=== PATIENT | female | born 1950 | race Caucasian/White ===

== ENCOUNTER 2017-02-03 11:59 | Emergency (ER) | payer MEDICARE, OTHER ==
[~2017-02-03] VITALS: Ht 162.6 cm; Wt 65.0 kg
[~2017-02-03 11:59] MED LIST: ALBUTEROL SUL0.083 % IN; ALIGN4 MG PO; AMLODIPINE5 MG PO; AZITHROMYCIN500 MG PO; CEPHALEXIN500 M1 PO; CHERATUSSIN OR; CIPRO XR500 M2 PO; CIPROFLOXACN500 MG PO; DEXILANT30 MG PO; DICLOFENAC SODI75 MG PO; DUONEB IN; FLONASE NASAL50 MCG; GABAPENTIN300 MG PO; LIPITOR20 M1 PO; LORTAB 10 OR; LORTAB 5 OR; LOSARTAN POT50 MG PO; LOSARTAN/HCT1 TA2 PO; MECLIZINE25 MG PO; MEDDOSEPAK PO; METHOCARBAMOL500 MG PO; MICARDIS40 MG OR; MYCOLOG CREAM15 GM EX; OXYCODONE HCL5 MG PO; PREDNISONE50 MG PO; PREVACID30 M1 OR; PRILOSEC40 MG PO; PROAIR HFA IN; SINGULAIR 10 MG10 MG PO; SPIRIVA IN; SYMBICORT 80-4.5MCG IN; SYMBICORT1 AE1 IN; TORADOL PO; TRAMADOL HCL50 MG PO; VENTOLIN HFA IN; XANAX0.25 MG PO; ZITHROMAX250 MG PO; ZYRTEC10 M1 PO; [UNRECOGNIZED DRUG - CODE] PO
[2017-02-03] MEDS ORDERED: TRAMADOL HYDROC50 MG PO (15:01)
[2017-02-03 15:20] VITALS: BP 128/79
== END 2017-02-03 15:20 | disposition home or self-care (01) ==
LOC: ED 11:59
DX: S10.93XA Contusion of unspecified part of neck, initial encounter (principal); W18.09XA Striking against other object with subsequent fall, initial encounter; Y93.89 Activity, other specified; Y92.008 Other place in unspecified non-institutional (private) residence as the place of occurrence of the external cause

== ENCOUNTER 2017-07-04 10:46 | Emergency (ER) | payer MEDICARE, OTHER ==
[~2017-07-04] VITALS: Ht 162.6 cm; Wt 63.0 kg
[~2017-07-04 10:46] MED LIST changes: +TRAMADOL HYDROC50 MG PO
[2017-07-04 11:29] LABS: HEMATOCRIT 34.7 % (37.0-47.0); HEMOGLOBIN 11.8 g/dl (12.0-16.0); IMMATURE GRANULOCYTES 0.6 % (0.0-1.0); MEAN CELL VOLUME 93.5 fL CALC (80.0-100.0); MEAN CORPUSCULAR HGB 31.8 pG CALC (26.0-32.0); NEUT# 4.34 thou/uL (2.00-7.15); RED BLOOD COUNT 3.71 mill/uL (4.20-5.60); RED CELL DISTRI WIDTH 12.8 % (11.5-15.5)
[2017-07-04 12:08] LABS: ALBUMIN 4.6 g/dL (3.2-5.0); ALKALINE PHOSPHATASE 73 u/l (38-126); ANION GAP 21 (6-22 (CALC)); BILIRUBIN, TOTAL 0.4 mg/dL (0.0-1.4); BUN 12 mg/dL (8-23); BUN/CREATININE RATIO 17 (12-20 (CALC)); CARBON DIOXIDE 24 mmol/l (22-30); CHLORIDE 100 mmol/l (95-108); CREATININE 0.7 mg/dL (0.5-1.0); GFR > 60 ML/MIN (>=60 (CALC)); GFR FOR AFR.AMER. > 60 ML/MIN (>=60 (CALC)); POTASSIUM 3.4 mmol/l (3.5-5.1); SGOT/AST 22 u/l (9-36); SGPT/ALT 30 u/l (11-66); SODIUM 142 mmol/l (137-146)
[2017-07-04] MEDS ORDERED: ANTIVERT PO (12:27)
[2017-07-04 12:30] VITALS: BP 139/76
== END 2017-07-04 12:35 | disposition home or self-care (01) ==
LOC: ED 10:46
PROVIDERS: Emergency Medicine
DX: R42 Dizziness and giddiness (principal); I10 Essential (primary) hypertension; K21.9 Gastro-esophageal reflux disease without esophagitis

== ENCOUNTER 2018-10-22 18:10 | Emergency (ER) | payer MEDICARE, OTHER ==
[~2018-10-22] VITALS: Ht 162.6 cm; Wt 70.0 kg
[~2018-10-22 18:10] MED LIST changes: +ANTIVERT PO
[2018-10-22 19:03] LABS: IMMATURE GRANULOCYTES 0.3 % (0.0-5.0); MEAN CELL VOLUME 90.6 fL CALC (80.0-100.0); MEAN CORPUSCULAR HGB 29.6 pG CALC (26.0-32.0); MEAN CORPUSCULAR HGB CONC 32.7 g/L CALC (32.0-36.0); NEUT# 3.05 thou/uL (2.00-7.15); RED BLOOD COUNT 3.31 mill/uL (4.20-5.60)
[2018-10-22 19:15] LABS: HEMOGLOBIN 9.8 g/dl (12.0-16.0)
[2018-10-22 19:30] LABS: ALBUMIN 3.9 g/dL (3.2-5.0); ALKALINE PHOSPHATASE 74 u/l (38-126); ANION GAP 13 (6-22 (CALC)); BILIRUBIN, TOTAL 0.3 mg/dL (0.0-1.4); BUN 17 mg/dL (8-23); BUN/CREATININE RATIO 22 (12-20 (CALC)); CARBON DIOXIDE 25 mmol/l (22-30); CHLORIDE 106 mmol/l (95-108); CREATININE 0.8 mg/dL (0.5-1.0); GFR > 60 ML/MIN (>=60 (CALC)); GFR FOR AFR.AMER. > 60 ML/MIN (>=60 (CALC)); LIPASE 119 u/l (23-300); POTASSIUM 3.6 mmol/l (3.5-5.1); SGOT/AST 22 u/l (9-36); SODIUM 141 mmol/l (137-146); TOTAL PROTEIN 6.7 g/dL (6.3-8.2)
[2018-10-22 19:58] LABS: URINE BILIRUBIN - DIPSTICK NEGATIVE (NEGATIVE); URINE BLOOD DIPSTICK NEGATIVE (NEGATIVE); URINE COLOR YELLOW; URINE GLUCOSE - DIPSTICK NEGATIVE (NEGATIVE); URINE KETONE NEGATIVE (NEGATIVE); URINE LEUK ESTERASE NEGATIVE (Negative); URINE NITRITE - DIPSTICK NEGATIVE (Negative); URINE PROTEIN - DIPSTICK NEGATIVE (NEG-TRACE); URINE SPECIFIC GRAVITY 1.015; URINE UROBILINOGEN - DIPSTICK 0.2 E.U./dL (0.2)
[2018-10-22 19:59] LABS: URINE CLARITY CLEAR
[2018-10-22] MEDS ORDERED: SERTRALINE HCL50 MG PO (20:08)
[2018-10-22] MEDS ORDERED: ALPRAZOLAM0.25 MG PO (20:08)
[2018-10-22] MEDS ORDERED: NAPROXEN DR500 MG PO (20:18)
[2018-10-22] MEDS ORDERED: ORPHENADRINE100 MG PO (20:18)
[2018-10-22] MEDS ORDERED: PREDNISONE20 MG PO (20:18)
[2018-10-22 20:35] VITALS: BP 127/69
== END 2018-10-22 20:35 | disposition home or self-care (01) ==
LOC: ED 18:10
DX: M62.830 Muscle spasm of back (principal); I10 Essential (primary) hypertension

== ENCOUNTER 2020-07-05 | Emergency (ER) | payer MEDICARE, OTHER ==
[~2020-07-05] MED LIST changes: +ALPRAZOLAM0.25 MG PO; +EFFEXOR XR75 MG/CAP PO; +NAPROXEN DR500 MG PO; +ORPHENADRINE100 MG PO; +PREDNISONE20 MG PO; +SERTRALINE HCL50 MG PO; +VENLAFAXINE HC150 MG PO
[2020-07-05 10:53] LABS: IMMATURE GRANULOCYTES 0.3 % (0.0-5.0); MEAN CELL VOLUME 91.2 fL CALC (80.0-100.0); MEAN CORPUSCULAR HGB 29.5 pG CALC (26.0-32.0); MEAN CORPUSCULAR HGB CONC 32.4 g/dL CAL (32.0-36.0); NEUT# 3.79 thou/uL (2.00-7.15); RED BLOOD COUNT 3.73 mill/uL (4.20-5.60); RED CELL DISTRI WIDTH 13.1 % (11.5-15.5)
[2020-07-05 11:01] LABS: ALBUMIN 4.8 g/dL (3.2-5.0); ALKALINE PHOSPHATASE 80 u/l (38-126); ANION GAP 15 (6-22 (CALC)); BILIRUBIN, TOTAL 0.8 mg/dL (0.0-1.4); BUN 20 mg/dL (8-23); BUN/CREATININE RATIO 23 (12-20 (CALC)); CARBON DIOXIDE 26 mmol/l (22-30); CHLORIDE 100 mmol/l (95-108); CREATININE 0.9 mg/dL (0.5-1.0); GFR > 60 ML/MIN (>=60 (CALC)); GFR FOR AFR.AMER. > 60 ML/MIN (>=60 (CALC)); POTASSIUM 3.7 mmol/l (3.5-5.1); SGOT/AST 31 u/l (9-36); SODIUM 137 mmol/l (137-146); TOTAL PROTEIN 8.3 g/dL (6.3-8.2)
[2020-07-05 11:09] LABS: MYOGLOBIN 46 ng/mL (0 - 62)
[2020-07-05] MEDS ORDERED: INDOCIN25 MG PO (12:50)
== END 2020-07-05 13:01 | disposition home or self-care (01) ==
PROVIDERS: Emergency Medicine
DX: R09.1 Pleurisy (principal); I10 Essential (primary) hypertension; J44.9 Chronic obstructive pulmonary disease, unspecified; F32.9 Major depressive disorder, single episode, unspecified; K21.9 Gastro-esophageal reflux disease without esophagitis
CPT/HCPCS: Q9967

== ENCOUNTER 2020-07-30 23:39 | Emergency (ER) | payer MEDICARE, OTHER ==
[~2020-07-30 23:39] MED LIST changes: +INDOCIN25 MG PO
[2020-07-31 02:30] VITALS: BP 149/72
[2020-07-31 02:34] LABS: HEMATOCRIT 31.3 % (37.0-47.0); HEMOGLOBIN 10.4 g/dl (12.0-16.0); IMMATURE GRANULOCYTES 0.6 % (0.0-5.0); MEAN CELL VOLUME 90.2 fL CALC (80.0-100.0); MEAN CORPUSCULAR HGB CONC 33.2 g/dL CAL (32.0-36.0); NEUT# 2.93 thou/uL (2.00-7.15); RED BLOOD COUNT 3.47 mill/uL (4.20-5.60); RED CELL DISTRI WIDTH 12.7 % (11.5-15.5)
[2020-07-31 02:55] LABS: ALBUMIN 4.2 g/dL (3.2-5.0); ALKALINE PHOSPHATASE 61 u/l (38-126); BILIRUBIN, TOTAL 0.6 mg/dL (0.0-1.4); BUN 15 mg/dL (8-23); BUN/CREATININE RATIO 21 (12-20 (CALC)); CARBON DIOXIDE 22 mmol/l (22-30); CHLORIDE 95 mmol/l (95-108); CREATININE 0.7 mg/dL (0.5-1.0); GFR > 60 ML/MIN (>=60 (CALC)); GFR FOR AFR.AMER. > 60 ML/MIN (>=60 (CALC)); POTASSIUM 3.7 mmol/l (3.5-5.1); SGOT/AST 31 u/l (9-36)
[2020-07-31 02:56] LABS: ANION GAP 14 (6-22 (CALC)); SODIUM 127 mmol/l (137-146)
== END 2020-07-31 02:49 | disposition short-term general hospital (02) ==
LOC: ED 23:39
PROVIDERS: Emergency Medicine
PROC: 2W38X1Z Immobilization of Right Upper Extremity using Splint (ICD-10-PCS; principal; 2020-07-31)
DX: S42.491B Other displaced fracture of lower end of right humerus, initial encounter for open fracture (principal); I10 Essential (primary) hypertension; J44.9 Chronic obstructive pulmonary disease, unspecified; K21.9 Gastro-esophageal reflux disease without esophagitis; F32.9 Major depressive disorder, single episode, unspecified; W01.0XXA Fall on same level from slipping, tripping and stumbling without subsequent striking against object, initial encounter; Y92.003 Bedroom of unspecified non-institutional (private) residence as the place of occurrence of the external cause; Z96.611 Presence of right artificial shoulder joint

== ENCOUNTER 2020-09-13 16:08 | Emergency (ER) | payer OTHER, MEDICARE ==
[~2020-09-13] VITALS: Ht 162.6 cm; Wt 62.7 kg
[2020-09-13 17:06] LABS: GFR > 60 ML/MIN (>=60 (CALC)); GFR FOR AFR.AMER. > 60 ML/MIN (>=60 (CALC))
[2020-09-13 17:12] LABS: HEMATOCRIT 34.9 % (37.0-47.0); IMMATURE GRANULOCYTES 0.7 % (0.0-5.0); MEAN CELL VOLUME 94.3 fL CALC (80.0-100.0); MEAN CORPUSCULAR HGB 29.7 pG CALC (26.0-32.0); MEAN CORPUSCULAR HGB CONC 31.5 g/dL CAL (32.0-36.0); NEUT# 5.13 thou/uL (2.00-7.15); RED BLOOD COUNT 3.7 mill/uL (4.20-5.60); RED CELL DISTRI WIDTH 12.7 % (11.5-15.5)
[2020-09-13 17:25] LABS: ALBUMIN 4.4 g/dL (3.2-5.0); ALKALINE PHOSPHATASE 86 u/l (38-126); AMYLASE 92 u/l (30-110); BUN 27 mg/dL (8-23); BUN/CREATININE RATIO 28 (12-20 (CALC)); CARBON DIOXIDE 22 mmol/l (22-30); CHLORIDE 100 mmol/l (95-108); GFR 55 ML/MIN (>=60 (CALC)); GFR FOR AFR.AMER. > 60 ML/MIN (>=60 (CALC)); LIPASE 240 u/l (23-300); POTASSIUM 3.9 mmol/l (3.5-5.1); SGOT/AST 35 u/l (9-36); TOTAL PROTEIN 7.8 g/dL (6.3-8.2)
[2020-09-13 17:26] LABS: ACT PARTIAL THROMBO TIME 21.8 SECONDS (20.0-32.5); PROTHROMBIN TIME 10.3 SECONDS (9.0-12.5)
[2020-09-13 17:37] LABS: ANION GAP 16 (6-22 (CALC)); BILIRUBIN, TOTAL 0.2 mg/dL (0.0-1.4); SODIUM 134 mmol/l (137-146)
[2020-09-13 18:08] LABS: URINE BILIRUBIN - DIPSTICK NEGATIVE (NEGATIVE); URINE BLOOD DIPSTICK NEGATIVE (NEGATIVE); URINE COLOR YELLOW; URINE GLUCOSE - DIPSTICK NEGATIVE (NEGATIVE); URINE KETONE NEGATIVE (NEGATIVE); URINE LEUK ESTERASE TRACE (NEGATIVE); URINE NITRITE - DIPSTICK NEGATIVE (Negative); URINE PROTEIN - DIPSTICK NEGATIVE (NEG-TRACE); URINE SPECIFIC GRAVITY <=1.005; URINE UROBILINOGEN - DIPSTICK 0.2 E.U./dL (0.2)
[2020-09-13] MEDS ORDERED: HYDROCO/APAP1 TA9 PO (18:21)
[2020-09-13 18:25] VITALS: BP 157/83
== END 2020-09-13 18:42 | disposition home or self-care (01) | DRG 605 ==
LOC: ED 16:08
DX: S00.03XA Contusion of scalp, initial encounter (principal); S20.211A Contusion of right front wall of thorax, initial encounter; I10 Essential (primary) hypertension; J44.9 Chronic obstructive pulmonary disease, unspecified; K21.9 Gastro-esophageal reflux disease without esophagitis; F32.9 Major depressive disorder, single episode, unspecified; V53.5XXA Driver of pick-up truck or van injured in collision with car, pick-up truck or van in traffic accident, initial encounter; Z96.611 Presence of right artificial shoulder joint
CPT/HCPCS: Q9967

== ENCOUNTER 2021-09-09 19:06 | Observation (INO) | payer MEDICARE, OTHER ==
[~2021-09-09] VITALS: Ht 162.6 cm; Wt 61.0 kg
[~2021-09-09 19:06] MED LIST changes: -EFFEXOR XR75 MG/CAP PO; +HYDROCO/APAP1 TA9 PO; +VENLAFAXINE37.5 M1 PO
[2021-09-09 19:16] VITALS: BP 150/87
[2021-09-09] MEDS ORDERED: SYMBICORT 80-4.5MCG IN (19:36)
[2021-09-09] MEDS ORDERED: GABAPENTIN100 MG PO (19:36)
[2021-09-09] MEDS ORDERED: LORTAB 5/3255 MG PO (19:39)
[2021-09-09 19:47] LABS: HEMATOCRIT 34.2 % (37.0-47.0); HEMOGLOBIN 11.1 g/dl (12.0-16.0); IMMATURE GRANULOCYTES 0.5 % (0.0-5.0); MEAN CORPUSCULAR HGB 30.5 pG CALC (26.0-32.0); MEAN CORPUSCULAR HGB CONC 32.5 g/dL CAL (32.0-36.0); NEUT# 2.89 thou/uL (2.00-7.15); RED BLOOD COUNT 3.64 mill/uL (4.20-5.60); RED CELL DISTRI WIDTH 12.4 % (11.5-15.5)
[2021-09-09 20:02] LABS: ALBUMIN 4.2 g/dL (3.2-5.0); ALKALINE PHOSPHATASE 78 u/l (38-126); AMYLASE 76 u/l (30-110); ANION GAP 18 (6-22 (CALC)); BUN 22 mg/dL (8-23); BUN/CREATININE RATIO 19 (12-20 (CALC)); CARBON DIOXIDE 25 mmol/l (22-30); CHLORIDE 98 mmol/l (95-108); CREATININE 1.1 mg/dL (0.5-1.0); GFR FOR AFR.AMER. 59 ML/MIN (>=60 (CALC)); GFR OTHER RACES 49 ML/MIN (>=60 (CALC)); LIPASE 180 u/l (23-300); POTASSIUM 3.6 mmol/l (3.5-5.1); SGOT/AST 29 u/l (9-36); SODIUM 136 mmol/l (137-146); TOTAL PROTEIN 7.7 g/dL (6.3-8.2)
[2021-09-09 20:03] LABS: URINE BILIRUBIN - DIPSTICK NEGATIVE (NEGATIVE); URINE BLOOD DIPSTICK TRACE-INTACT (NEGATIVE); URINE COLOR YELLOW; URINE GLUCOSE - DIPSTICK NEGATIVE (NEGATIVE); URINE KETONE NEGATIVE (NEGATIVE); URINE LEUK ESTERASE NEGATIVE (NEGATIVE); URINE PROTEIN - DIPSTICK NEGATIVE (NEG-TRACE); URINE SPECIFIC GRAVITY 1.015; URINE UROBILINOGEN - DIPSTICK 0.2 E.U./dL (0.2)
[2021-09-09 20:04] LABS: URINE NITRITE - DIPSTICK NEGATIVE (Negative)
[2021-09-09 20:05] LABS: ACT PARTIAL THROMBO TIME 28.1 SECONDS (20.0-32.5); BILIRUBIN, TOTAL 0.3 mg/dL (0.0-1.4); INTERNATIONAL NORMALIZED RATIO 1.1 RATIO (0.7-1.3); PROTHROMBIN TIME 11.1 SECONDS (9.0-12.5)
[2021-09-09 20:42] VITALS: BP 129/71
[2021-09-09 20:45] VITALS: BP 137/73
[2021-09-09 21:00] VITALS: BP 122/56
[2021-09-09 21:41] VITALS: BP 155/76
[2021-09-10 00:04] VITALS: BP 122/68
[2021-09-10 04:28] VITALS: BP 95/51
[2021-09-10 05:35] LABS: HEMATOCRIT 29.5 % (37.0-47.0); HEMOGLOBIN 9.8 g/dl (12.0-16.0); MEAN CELL VOLUME 93.9 fL CALC (80.0-100.0); MEAN CORPUSCULAR HGB 31.2 pG CALC (26.0-32.0); MEAN CORPUSCULAR HGB CONC 33.2 g/dL CAL (32.0-36.0); RED BLOOD COUNT 3.14 mill/uL (4.20-5.60); RED CELL DISTRI WIDTH 12.3 % (11.5-15.5)
[2021-09-10 05:52] LABS: ANION GAP 10 (6-22 (CALC)); BUN 17 mg/dL (8-23); BUN/CREATININE RATIO 18 (12-20 (CALC)); CALCULATED LDLCHOLESTEROL 46 mg/dL (62-129 (CALC)); CARBON DIOXIDE 29 mmol/l (22-30); CHLORIDE 101 mmol/l (95-108); CHOLESTEROL HDL RATIO 2.3 (<4.4 (CALC)); CREATININE 0.9 mg/dL (0.5-1.0); GFR FOR AFR.AMER. > 60 ML/MIN (>=60 (CALC)); GFR OTHER RACES > 60 ML/MIN (>=60 (CALC)); HDL CHOLESTEROL 55 mg/dL (>=40); POTASSIUM 3.4 mmol/l (3.5-5.1); SODIUM 137 mmol/l (137-146); TOTAL CHOLESTEROL 127 mg/dl (0-199); TOTAL TRIGLYCERIDES 128 mg/dl (30-149); VLDL CHOLESTROL 26 mg/dl (0-48 (CALC))
[2021-09-10 06:09] LABS: MAGNESIUM 0.6 mg/dL (1.6-2.3)
[2021-09-10 07:00] VITALS: BP 100/49
[2021-09-10] MEDS ORDERED: MAXITROL0.1 % OD (07:08)
[2021-09-10] MEDS ORDERED: LOSARTAN POTASS25 MG PO (07:08)
[2021-09-10] MEDS ORDERED: OMEPRA/BICAR1 CAP PO (07:09)
[2021-09-10] MEDS ORDERED: ATORVASTATIN CA40 MG PO (07:10)
[2021-09-10] MEDS ORDERED: HYDROCODONE BIT1 TA9 PO (07:11)
[2021-09-10] MEDS ORDERED: XANAX0.25 MG PO (07:11)
[2021-09-10 10:41] VITALS: BP 116/65
[2021-09-10 15:01] VITALS: BP 122/66
== END 2021-09-10 15:58 | disposition home or self-care (01) ==
LOC: ED 19:06 → ED-I 20:22 → ED 20:33 → MS2 20:34
PROVIDERS: ADMIT Hospitalist; ATTEND Hospitalist
DX: R07.89 Other chest pain (principal); E83.42 Hypomagnesemia; E87.6 Hypokalemia; I10 Essential (primary) hypertension; J44.9 Chronic obstructive pulmonary disease, unspecified; K21.9 Gastro-esophageal reflux disease without esophagitis; G25.81 Restless legs syndrome; F32.A Depression, unspecified; K58.2 Mixed irritable bowel syndrome; E78.5 Hyperlipidemia, unspecified; Z63.4 Disappearance and death of family member; Z63.8 Other specified problems related to primary support group; Z87.440 Personal history of urinary (tract) infections; Z82.49 Family history of ischemic heart disease and other diseases of the circulatory system; Z87.891 Personal history of nicotine dependence; Z20.822 Contact with and (suspected) exposure to COVID-19
CPT/HCPCS: G0378; J1650; J3475

== ENCOUNTER 2021-11-13 09:08 | Observation (INO) | payer MEDICARE, OTHER ==
[2021-11-13] VITALS (31 sets, daily range): BP systolic 125–170; BP diastolic 69–109
[~2021-11-13] VITALS: Ht 162.6 cm; Wt 57.0 kg
[~2021-11-13 09:08] MED LIST changes: +ATORVASTATIN CA40 MG PO; +GABAPENTIN100 MG PO; +HYDROCODONE BIT1 TA9 PO; +LORTAB 5/3255 MG PO; +LOSARTAN POTASS25 MG PO; +MAXITROL0.1 % OD; +OMEPRA/BICAR1 CAP PO
[2021-11-13 10:13] LABS: HEMATOCRIT 33.9 % (37.0-47.0); HEMOGLOBIN 11.1 g/dl (12.0-16.0); IMMATURE GRANULOCYTES 0.2 % (0.0-5.0); MEAN CELL VOLUME 93.9 fL CALC (80.0-100.0); MEAN CORPUSCULAR HGB 30.7 pG CALC (26.0-32.0); MEAN CORPUSCULAR HGB CONC 32.7 g/dL CAL (32.0-36.0); NEUT# 3.34 thou/uL (2.00-7.15); RED BLOOD COUNT 3.61 mill/uL (4.20-5.60); RED CELL DISTRI WIDTH 13.2 % (11.5-15.5)
[2021-11-13 10:23] LABS: ALBUMIN 4.4 g/dL (3.2-5.0); ALKALINE PHOSPHATASE 69 u/l (38-126); ANION GAP 13 (6-22 (CALC)); BILIRUBIN, TOTAL 0.6 mg/dL (0.0-1.4); BUN 11 mg/dL (8-23); BUN/CREATININE RATIO 14 (12-20 (CALC)); CARBON DIOXIDE 28 mmol/l (22-30); CHLORIDE 102 mmol/l (95-108); CREATININE 0.8 mg/dL (0.5-1.0); GFR FOR AFR.AMER. > 60 ML/MIN (>=60 (CALC)); GFR OTHER RACES > 60 ML/MIN (>=60 (CALC)); POTASSIUM 3.6 mmol/l (3.5-5.1); SGOT/AST 42 u/l (9-36); SODIUM 139 mmol/l (137-146); TOTAL PROTEIN 7.6 g/dL (6.3-8.2)
[2021-11-13] MEDS ORDERED: MAGNESIUM OXID500 M1 PO (13:27)
[2021-11-13] MEDS ORDERED: LOSARTAN POTASS50 MG PO (21:51)
[2021-11-14] VITALS: BP 119/64
[2021-11-14 00:06] VITALS: BP 119/64
[2021-11-14 04:00] VITALS: BP 107/55
[2021-11-14 04:10] VITALS: BP 107/55
[2021-11-14 05:26] LABS: CHOLESTEROL HDL RATIO 3.1 (<4.4 (CALC))
[2021-11-14 05:27] LABS: MAGNESIUM 1.7 mg/dL (1.6-2.3)
[2021-11-14 06:27] VITALS: BP 111/60
[2021-11-14 10:09] VITALS: BP 136/75
[2021-11-14 11:33] LABS: HEMATOCRIT 31.3 % (37.0-47.0); HEMOGLOBIN 10.4 g/dl (12.0-16.0); MEAN CELL VOLUME 92.1 fL CALC (80.0-100.0); MEAN CORPUSCULAR HGB 30.6 pG CALC (26.0-32.0); MEAN CORPUSCULAR HGB CONC 33.2 g/dL CAL (32.0-36.0); NEUT# 2.66 thou/uL (2.00-7.15); RED BLOOD COUNT 3.4 mill/uL (4.20-5.60); RED CELL DISTRI WIDTH 13.2 % (11.5-15.5)
== END 2021-11-14 14:10 | disposition home or self-care (01) ==
LOC: ED 09:08 → ED-I 15:04 → ED 15:38 → MS2 15:38
PROVIDERS: Family Medicine; Internal Medicine; ADMIT Internal Medicine; ATTEND Internal Medicine
DX: R07.2 Precordial pain (principal); E83.42 Hypomagnesemia; I10 Essential (primary) hypertension; J44.9 Chronic obstructive pulmonary disease, unspecified; K58.2 Mixed irritable bowel syndrome; K21.9 Gastro-esophageal reflux disease without esophagitis; E78.5 Hyperlipidemia, unspecified; G25.81 Restless legs syndrome; Z87.440 Personal history of urinary (tract) infections; Z63.6 Dependent relative needing care at home; Z87.891 Personal history of nicotine dependence; Z20.822 Contact with and (suspected) exposure to COVID-19
CPT/HCPCS: G0378; J3475; Q9967

== ENCOUNTER 2022-01-12 07:08 | Day surgery (SDC) | payer MEDICARE, OTHER ==
[~2022-01-12] VITALS: Ht 162.6 cm; Wt 54.4 kg
[~2022-01-12 07:08] MED LIST changes: +EFFEXOR XR75 MG/CAP PO; +LOSARTAN POTASS50 MG PO; +MAGNESIUM OXID500 M1 PO
[2022-01-12 11:26] VITALS: BP 135/76
== END 2022-01-12 10:05 | disposition home or self-care (01) ==
LOC: ENDO 07:08 → ORM 08:45 → ENDO 08:45
PROVIDERS: ATTEND Surgery
PROC: 0DJD8ZZ Inspection of Lower Intestinal Tract, Via Natural or Artificial Opening Endoscopic (ICD-10-PCS; principal; 2022-01-12)
PROC: 0DB68ZX Excision of Stomach, Via Natural or Artificial Opening Endoscopic, Diagnostic (ICD-10-PCS; 2022-01-12)
DX: K31.9 Disease of stomach and duodenum, unspecified (principal); K44.9 Diaphragmatic hernia without obstruction or gangrene; K57.30 Diverticulosis of large intestine without perforation or abscess without bleeding; K64.8 Other hemorrhoids; K64.4 Residual hemorrhoidal skin tags; I10 Essential (primary) hypertension; J44.9 Chronic obstructive pulmonary disease, unspecified; F32.9 Major depressive disorder, single episode, unspecified; Z86.010 Personal history of colon polyps

== ENCOUNTER 2022-03-05 10:51 | Observation (INO) | payer MEDICARE, OTHER ==
[~2022-03-05] VITALS: Ht 162.6 cm; Wt 57.6 kg
[2022-03-05] VITALS (13 sets, daily range): BP systolic 75–140; BP diastolic 44–76
--- NOTE | 2022-03-05 10:51 | NUR ---
PT AMBULATED TO ROOM FOR TRIAGE
[2022-03-05 11:26] LABS: HEMATOCRIT 32.2 % (37.0-47.0); HEMOGLOBIN 10.8 g/dl (12.0-16.0); IMMATURE GRANULOCYTES 0.2 % (0.0-5.0); MEAN CELL VOLUME 93.3 fL CALC (80.0-100.0); MEAN CORPUSCULAR HGB 31.3 pG CALC (26.0-32.0); MEAN CORPUSCULAR HGB CONC 33.5 g/dL CAL (32.0-36.0); NEUT# 5.34 thou/uL (2.00-7.15); RED BLOOD COUNT 3.45 mill/uL (4.20-5.60); RED CELL DISTRI WIDTH 12.6 % (11.5-15.5)
[2022-03-05 11:53] LABS: ALBUMIN 4.5 g/dL (3.2-5.0); ALKALINE PHOSPHATASE 67 u/l (38-126); ANION GAP 14 (6-22 (CALC)); BILIRUBIN, TOTAL 0.5 mg/dL (0.0-1.4); BUN 23 mg/dL (8-23); BUN/CREATININE RATIO 17 (12-20 (CALC)); CARBON DIOXIDE 25 mmol/l (22-30); CHLORIDE 99 mmol/l (95-108); CREATININE 1.4 mg/dL (0.5-1.0); GFR FOR AFR.AMER. 45 ML/MIN (>=60 (CALC)); GFR OTHER RACES 37 ML/MIN (>=60 (CALC)); POTASSIUM 4.1 mmol/l (3.5-5.1); SGOT/AST 36 u/l (9-36); SODIUM 135 mmol/l (137-146); TOTAL PROTEIN 7.6 g/dL (6.3-8.2)
--- NOTE | 2022-03-05 12:15 | NUR ---
PT IN ROOM C/O RT SIDE PAIN THAT IS RADIATING UP TO HER BACK
--- NOTE | 2022-03-05 13:15 | NUR ---
Reassessment of patient completed. No distress noted.
[2022-03-05 13:42] LABS: URINE BILIRUBIN - DIPSTICK NEGATIVE (NEGATIVE); URINE BLOOD DIPSTICK NEGATIVE (NEGATIVE); URINE COLOR YELLOW; URINE GLUCOSE - DIPSTICK NEGATIVE (NEGATIVE); URINE KETONE NEGATIVE (NEGATIVE); URINE LEUK ESTERASE TRACE (NEGATIVE); URINE PROTEIN - DIPSTICK NEGATIVE (NEG-TRACE); URINE SPECIFIC GRAVITY <=1.005; URINE UROBILINOGEN - DIPSTICK 0.2 E.U./dL (0.2)
[2022-03-05 13:48] LABS: URINE NITRITE - DIPSTICK POSITIVE (Negative)
[2022-03-05 13:49] LABS: URINE BACTERIA MODERATE hpf; URINE EPITHELIAL CELLS FEW EPI/hpf (0-FEW)
--- NOTE | 2022-03-05 14:15 | NUR ---
PT IN ROOM RESTING WITH EYES OPEN. PT ASKED TO USED THE REST ROOM. A BEDSIDE COMMODE WAS PLACED IN PT ROOM.
--- NOTE | 2022-03-05 15:20 | NUR ---
PT IN ROOM RESTING WITH EYES CLOSED
--- NOTE | 2022-03-05 16:19 | NUR ---
PT ARRIVED TO [facility] VIA STRETCHER ACCOMPAINED BY ER STAFF. PT AMBULATORY WITH X1 ASSIST FROM STRETCHER TO BED. PT STATES SHE FEELS VERY WEAK AND HAS HAD RECENT UNINTENTIONAL WEIGHT LOSS OF 35LBS. PT A&OX3. NO APPARENT RESPIRATORY DISTRESS NOTED. INSPECTOR INTEGRATED CIRCUITS IN PLACE. IV SITE APPEARS HEALTHY. PT ABLE TO MAKE NEEDS KNOWN. ORIENTED TO ROOM AND CALL LIGHT SYSTEM. COMPRESSION STOCKINGS AND NONSKID SOCKS APPLIED. DISCUSSED POC AND SAFETY PRECAUTIONS. CALL LIGHT WITHIN REACH. WILL CONTINUE TO MONITOR.
--- NOTE | 2022-03-05 16:25 | NUR ---
PT IS BEING ADMITTED AND IS BEING TRANSFERRED TO [facility] 268. NAD
--- NOTE | 2022-03-05 17:15 | NUR ---
REPORT GIVEN TO CAROL VIA PHONE
--- NOTE | 2022-03-05 23:40 | NUR ---
1900 BEDSIDE REPORT RECEIVED FROM CHLOÉ MEDINA. PT RESTING IN BED WITH EYES CLOSED. NO SIGNS OF DISTRESS NOTED. PT C/O RIGHT UNDERARM PAIN BUT DOES NOT HAVE ANY MEDICATIONS ORDERED AT THIS TIME, SPOKE TO DR. ELIAS AND HOME MEDS RECONCILED. SAFETY PRECAUTIONS IN PLACE.
[2022-03-06 00:14] VITALS: BP 106/55
[2022-03-06 03:43] VITALS: BP 103/44
[2022-03-06 06:06] LABS: HEMATOCRIT 26.9 % (37.0-47.0); HEMOGLOBIN 9.2 g/dl (12.0-16.0); MEAN CELL VOLUME 94.1 fL CALC (80.0-100.0); MEAN CORPUSCULAR HGB 32.2 pG CALC (26.0-32.0); MEAN CORPUSCULAR HGB CONC 34.2 g/dL CAL (32.0-36.0); RED BLOOD COUNT 2.86 mill/uL (4.20-5.60); RED CELL DISTRI WIDTH 12.7 % (11.5-15.5)
[2022-03-06 06:28] LABS: ANION GAP 9 (6-22 (CALC)); BUN 19 mg/dL (8-23); BUN/CREATININE RATIO 23 (12-20 (CALC)); CARBON DIOXIDE 25 mmol/l (22-30); CHLORIDE 105 mmol/l (95-108); CREATININE 0.8 mg/dL (0.5-1.0); GFR FOR AFR.AMER. > 60 ML/MIN (>=60 (CALC)); GFR OTHER RACES > 60 ML/MIN (>=60 (CALC)); MAGNESIUM 1.4 mg/dL (1.6-2.3); POTASSIUM 4.1 mmol/l (3.5-5.1); SODIUM 135 mmol/l (137-146)
[2022-03-06 06:38] VITALS: BP 140/73
--- NOTE | 2022-03-06 08:26 | NUR ---
PT RESTING IN BED, NO SIGNS OF DISTRESS NOTED, RESP EVEN AND UNLABORED. PT ALERT AND ORIENTED X4, DISCUSSED POC, PT SAT UP TO SIDE OF BED, C/O PAIN TO R RIBS. PT MEDICATED PER MAR. ASSESSMENT COMPLETED, CALL LIGHT IN REACH,CONTINUE TO MONITOR.
--- NOTE | 2022-03-06 09:46 | NUR ---
PT SITTING IN BED, S/O AT BEDSIDE. DISCUSSED IV MAGNESIUM. PT VERABALIZED UNDERSTANDING. PT MEDICATED PER JUN. CALL LIGHT IN REACH,CONTINUE TO MONITOR.
[2022-03-06 11:19] VITALS: BP 115/61
--- NOTE | 2022-03-06 11:30 | NUR ---
CHAY OLIVER, DISCUSSED INFUSION, VERBALIZED UNDERSTANDING.
--- NOTE | 2022-03-06 13:24 | NUR ---
Discharge instructions given. Patient verbalizes understanding of same. Discharged in stable condition via Wheelchair to Home with spouse. All belongings sent with pt.
== END 2022-03-06 13:25 | disposition home or self-care (01) ==
LOC: ED 10:51 → ED-I 14:44 → ED 15:07 → MS2 15:08
PROVIDERS: Family Medicine; ADMIT Internal Medicine; ATTEND Internal Medicine
DX: N39.0 Urinary tract infection, site not specified (principal); R91.8 Other nonspecific abnormal finding of lung field; G89.29 Other chronic pain; M54.9 Dorsalgia, unspecified; I10 Essential (primary) hypertension; J44.9 Chronic obstructive pulmonary disease, unspecified; F41.9 Anxiety disorder, unspecified; I95.9 Hypotension, unspecified; K58.2 Mixed irritable bowel syndrome; K21.9 Gastro-esophageal reflux disease without esophagitis; B96.89 Other specified bacterial agents as the cause of diseases classified elsewhere; Z87.891 Personal history of nicotine dependence; Z87.440 Personal history of urinary (tract) infections; Z79.891 Long term (current) use of opiate analgesic
CPT/HCPCS: J3475; Q9967

== ENCOUNTER 2022-07-22 10:44 | Observation (INO) | payer MEDICARE, OTHER ==
[2022-07-22] VITALS (14 sets, daily range): BP systolic 111–146; BP diastolic 65–82
[~2022-07-22] VITALS: Ht 162.6 cm; Wt 54.2 kg
[~2022-07-22 10:44] MED LIST changes: -GABAPENTIN100 MG PO; +NEURONTIN300 MG PO
[2022-07-22 11:19] LABS: BASO% 0.4 % (0-3); EOS% 7.3 % (0-8); HEMATOCRIT 32.6 % (37.0-47.0); HEMOGLOBIN 10.8 g/dl (12.0-16.0); IMMATURE GRANULOCYTES 0.1 % (0.0-5.0); LYMPH% 23.7 % (15-41); MEAN CELL VOLUME 92.6 fL CALC (80.0-100.0); MEAN CORPUSCULAR HGB 30.7 pG CALC (26.0-32.0); MEAN CORPUSCULAR HGB CONC 33.1 g/dL CAL (32.0-36.0); MONO% 4.9 % (2-13); NEUT# 4.51 thou/uL (2.00-7.15); NEUT% 63.6 % (42-76); RED BLOOD COUNT 3.52 mill/uL (4.20-5.60); RED CELL DISTRI WIDTH 12.7 % (11.5-15.5)
[2022-07-22 11:27] LABS: ALBUMIN 4.7 g/dL (3.2-5.0); ALKALINE PHOSPHATASE 82 u/l (38-126); ANION GAP 15 (6-22 (CALC)); BILIRUBIN, TOTAL 0.5 mg/dL (0.02-1.3); BUN 15 mg/dL (8-23); BUN/CREATININE RATIO 17 (12-20 (CALC)); CARBON DIOXIDE 25 mmol/l (22-30); CHLORIDE 100 mmol/l (95-108); CREATININE 0.9 mg/dL (0.5-1.0); GFR FOR AFR.AMER. > 60 ML/MIN (>=60 (CALC)); GFR OTHER RACES > 60 ML/MIN (>=60 (CALC)); POTASSIUM 3.5 mmol/l (3.5-5.1); SGOT/AST 28 u/l (9-36); SODIUM 136 mmol/l (137-146); TOTAL PROTEIN 7.9 g/dL (6.3-8.2)
[2022-07-22 11:30] LABS: MAGNESIUM 0.9 mg/dL (1.6-2.3)
[2022-07-22] MEDS ORDERED: HYZAAR1 TA2 PO (13:51)
[2022-07-22 14:13] LABS: URINE BILIRUBIN - DIPSTICK NEGATIVE (NEGATIVE); URINE BLOOD DIPSTICK NEGATIVE (NEGATIVE); URINE COLOR YELLOW; URINE GLUCOSE - DIPSTICK NEGATIVE (NEGATIVE); URINE KETONE NEGATIVE (NEGATIVE); URINE LEUK ESTERASE TRACE (NEGATIVE); URINE PROTEIN - DIPSTICK NEGATIVE (NEG-TRACE); URINE UROBILINOGEN - DIPSTICK 0.2 E.U./dL (0.2)
[2022-07-22 14:24] LABS: URINE NITRITE - DIPSTICK NEGATIVE (Negative)
[2022-07-23] VITALS (7 sets, daily range): BP systolic 105–166; BP diastolic 54–83
[2022-07-23 05:29] LABS: BASO% 0.2 % (0-3); EOS% 0.7 % (0-8); HEMATOCRIT 32.2 % (37.0-47.0); HEMOGLOBIN 10.7 g/dl (12.0-16.0); LYMPH% 6.7 % (15-41); MEAN CELL VOLUME 93.1 fL CALC (80.0-100.0); MEAN CORPUSCULAR HGB 30.9 pG CALC (26.0-32.0); MEAN CORPUSCULAR HGB CONC 33.2 g/dL CAL (32.0-36.0); MONO% 0.9 % (2-13); NEUT# 5.05 thou/uL (2.00-7.15); RED BLOOD COUNT 3.46 mill/uL (4.20-5.60); RED CELL DISTRI WIDTH 12.6 % (11.5-15.5)
[2022-07-23 05:52] LABS: ALBUMIN 4.1 g/dL (3.2-5.0); ALKALINE PHOSPHATASE 77 u/l (38-126); ANION GAP 12 (6-22 (CALC)); BILIRUBIN, TOTAL 0.4 mg/dL (0.02-1.3); BUN 11 mg/dL (8-23); BUN/CREATININE RATIO 16 (12-20 (CALC)); CARBON DIOXIDE 25 mmol/l (22-30); CHLORIDE 104 mmol/l (95-108); CREATININE 0.7 mg/dL (0.5-1.0); GFR FOR AFR.AMER. > 60 ML/MIN (>=60 (CALC)); GFR OTHER RACES > 60 ML/MIN (>=60 (CALC)); MAGNESIUM 1.9 mg/dL (1.6-2.3); POTASSIUM 3.7 mmol/l (3.5-5.1); SGOT/AST 22 u/l (9-36); SODIUM 137 mmol/l (137-146); TOTAL PROTEIN 6.7 g/dL (6.3-8.2)
[2022-07-23 06:04] LABS: NEUT% 91.5 % (42-76)
[2022-07-24 06:12] VITALS: BP 169/81
[2022-07-24 10:10] LABS: ALBUMIN 4.4 g/dL (3.2-5.0); ALKALINE PHOSPHATASE 63 u/l (38-126); ANION GAP 13 (6-22 (CALC)); BILIRUBIN, TOTAL 0.2 mg/dL (0.02-1.3); BUN 18 mg/dL (8-23); BUN/CREATININE RATIO 27 (12-20 (CALC)); CARBON DIOXIDE 23 mmol/l (22-30); CHLORIDE 102 mmol/l (95-108); CREATININE 0.7 mg/dL (0.5-1.0); GFR FOR AFR.AMER. > 60 ML/MIN (>=60 (CALC)); GFR OTHER RACES > 60 ML/MIN (>=60 (CALC)); SGOT/AST 28 u/l (9-36); SODIUM 134 mmol/l (137-146); TOTAL PROTEIN 7.3 g/dL (6.3-8.2)
[2022-07-24 10:11] LABS: HEMATOCRIT 34.6 % (37.0-47.0); HEMOGLOBIN 11.3 g/dl (12.0-16.0); IMMATURE GRANULOCYTES 0.2 % (0.0-5.0); LYMPH% 6.7 % (15-41); MEAN CORPUSCULAR HGB 30.4 pG CALC (26.0-32.0); MEAN CORPUSCULAR HGB CONC 32.7 g/dL CAL (32.0-36.0); MONO% 1.1 % (2-13); NEUT# 11.24 thou/uL (2.00-7.15); RED BLOOD COUNT 3.72 mill/uL (4.20-5.60); RED CELL DISTRI WIDTH 12.8 % (11.5-15.5)
[2022-07-24 10:17] LABS: MAGNESIUM 1.6 mg/dL (1.6-2.3)
[2022-07-24] MEDS ORDERED: ZITHROMAX250 MG PO (10:40)
[2022-07-24 10:42] VITALS: BP 134/73
[2022-07-24] MEDS ORDERED: PREDNISONE10 MG PO (10:42)
[2022-07-24] MEDS ORDERED: MAGNESIUM OXID400 M3 PO (10:43)
[2022-07-24] MEDS ORDERED: BIOTUSSIN PO (10:43)
== END 2022-07-24 13:19 | disposition home or self-care (01) ==
LOC: ED 10:44 → ED-I 12:18 → ED 12:48 → MS2 12:49
PROVIDERS: Family Medicine; Nurse Practitioner Family; ADMIT Internal Medicine; ATTEND Internal Medicine
DX: E83.42 Hypomagnesemia (principal); J10.1 Influenza due to other identified influenza virus with other respiratory manifestations; J44.1 Chronic obstructive pulmonary disease with (acute) exacerbation; I10 Essential (primary) hypertension; R42 Dizziness and giddiness; F41.9 Anxiety disorder, unspecified; K58.2 Mixed irritable bowel syndrome; K21.9 Gastro-esophageal reflux disease without esophagitis; E78.5 Hyperlipidemia, unspecified; S00.93XA Contusion of unspecified part of head, initial encounter; S00.81XA Abrasion of other part of head, initial encounter; R91.8 Other nonspecific abnormal finding of lung field; W19.XXXA Unspecified fall, initial encounter; Z87.440 Personal history of urinary (tract) infections; Z87.891 Personal history of nicotine dependence; Z20.822 Contact with and (suspected) exposure to COVID-19
CPT/HCPCS: J3475

== ENCOUNTER 2022-08-20 12:55 | Observation (INO) | payer MEDICARE, OTHER ==
[~2022-08-20] VITALS: Ht 162.6 cm; Wt 54.4 kg
[~2022-08-20 12:55] MED LIST changes: +BIOTUSSIN PO; +HYZAAR1 TA2 PO; +MAGNESIUM OXID400 M3 PO; +PREDNISONE10 MG PO
--- NOTE | 2022-08-20 12:55 | NUR ---
PT IN ROOM 8 VIA WHEELCHAIR C/O WEAKNESS AND NAUSEA
[2022-08-20 13:25] LABS: BASO% 0.2 % (0-3); EOS% 1.8 % (0-8); HEMATOCRIT 35.6 % (37.0-47.0); HEMOGLOBIN 11.7 g/dl (12.0-16.0); IMMATURE GRANULOCYTES 0.4 % (0.0-5.0); LYMPH% 33.6 % (15-41); MEAN CELL VOLUME 94.2 fL CALC (80.0-100.0); MEAN CORPUSCULAR HGB CONC 32.9 g/dL CAL (32.0-36.0); MONO% 6.9 % (2-13); NEUT# 3.16 thou/uL (2.00-7.15); NEUT% 57.1 % (42-76); RED BLOOD COUNT 3.78 mill/uL (4.20-5.60)
[2022-08-20 13:38] LABS: ALBUMIN 4.6 g/dL (3.2-5.0); ALKALINE PHOSPHATASE 60 u/l (38-126); ANION GAP 14 (6-22 (CALC)); BUN 23 mg/dL (8-23); BUN/CREATININE RATIO 18 (12-20 (CALC)); CARBON DIOXIDE 23 mmol/l (22-30); CHLORIDE 99 mmol/l (95-108); CREATININE 1.3 mg/dL (0.5-1.0); GFR FOR AFR.AMER. 49 ML/MIN (>=60 (CALC)); GFR OTHER RACES 40 ML/MIN (>=60 (CALC)); POTASSIUM 3.2 mmol/l (3.5-5.1); SGOT/AST 30 u/l (9-36); SODIUM 134 mmol/l (137-146); TOTAL PROTEIN 7.5 g/dL (6.3-8.2)
[2022-08-20 13:40] LABS: BILIRUBIN, TOTAL 0.3 mg/dL (0.02-1.3)
--- NOTE | 2022-08-20 13:50 | NUR ---
Reassessment of patient completed. No distress noted.
--- NOTE | 2022-08-20 14:40 | NUR ---
PT'S MED REC DONE PER INFO AND LIST PT PROVIDED
[2022-08-20] MEDS ORDERED: HYDROCO/APAP1 TA9 PO (14:43)
--- NOTE | 2022-08-20 14:43 | NUR ---
Reassessment of patient completed. No distress noted. UP TO BR TO PROVIDER URINE SAMPLE.
[2022-08-20 15:05] LABS: URINE BILIRUBIN - DIPSTICK NEGATIVE (NEGATIVE); URINE BLOOD DIPSTICK NEGATIVE (NEGATIVE); URINE COLOR YELLOW; URINE GLUCOSE - DIPSTICK NEGATIVE (NEGATIVE); URINE KETONE NEGATIVE (NEGATIVE); URINE LEUK ESTERASE TRACE (NEGATIVE); URINE PH 5.5 (4.5-8.0); URINE PROTEIN - DIPSTICK TRACE mg/dL (NEG-TRACE); URINE UROBILINOGEN - DIPSTICK 0.2 E.U./dL (0.2)
[2022-08-20 15:12] LABS: URINE NITRITE - DIPSTICK NEGATIVE (Negative)
--- NOTE | 2022-08-20 15:34 | NUR ---
Reassessment of patient completed. No distress noted.
--- NOTE | 2022-08-20 16:30 | NUR ---
Reassessment of patient completed. No distress noted IS REQUESTING PAIN MED FOR ABD PAIN RADIATING INTO BACK 09/11, PROVIDER NOTIFIED.
--- NOTE | 2022-08-20 16:30 | NUR ---
Reassessment of patient completed. No distress noted. WENT TO X-RAY VIA W/C.
--- NOTE | 2022-08-20 16:43 | NUR ---
FIRTS NOT DELETED FOR 1630 DELETED IN ERROR, SECOND NOTE DELETED CORRECTLY DUE TO DOCUMENTED IN WRONG CHART.
--- NOTE | 2022-08-20 17:45 | NUR ---
Reassessment of patient completed. No distress noted.
--- NOTE | 2022-08-20 18:50 | NUR ---
Reassessment of patient completed. No distress noted.
--- NOTE | 2022-08-20 20:15 | NUR ---
REPORT CALLED TO MS CHLOÉ MAKESHA - PT TX VIA WHEELCHAIR AND IS A/OX4, VSS, NAD.
--- NOTE | 2022-08-20 20:27 | NUR ---
REPORT RECEIBVED FROM EDITH IN THE ER. PATIENT ARRIVED TO ROOM 261 VIA AT 2025. PATIENT ABLE TO AMBULATE AND WAS ABLE TO GO TO THE BATHROOM INDEPENDENTLY. HEAD TO TOE ASSESSMENT COMPLETED. SKIN INTACT. PATIENT ALERT AND ORIENTED AND ABLE TO MAKE NEEDS KNOWN. ORIENTED TO ROOM AND CALL LIGHT. SAFETY MEASURES IN PLACE. CALL LIGHT WITHIN EACH.
[2022-08-20 20:32] VITALS: BP 122/67
[2022-08-21] VITALS (7 sets, daily range): BP systolic 106–126; BP diastolic 62–75
--- NOTE | 2022-08-21 05:23 | NUR ---
PATIENT RESTING IN BED. DENIES PAIN OR DISCOMFORT AT THIS TIME. CALL LIGHT WITHIN REACH.
[2022-08-21 05:44] LABS: BASO% 0.5 % (0-3); EOS% 2.9 % (0-8); LYMPH% 44.4 % (15-41); MEAN CELL VOLUME 94.9 fL CALC (80.0-100.0); MEAN CORPUSCULAR HGB 31.1 pG CALC (26.0-32.0); MEAN CORPUSCULAR HGB CONC 32.8 g/dL CAL (32.0-36.0); MONO% 7.8 % (2-13); NEUT# 1.82 thou/uL (2.00-7.15); NEUT% 44.4 % (42-76); RED BLOOD COUNT 3.12 mill/uL (4.20-5.60); RED CELL DISTRI WIDTH 12.9 % (11.5-15.5)
[2022-08-21 05:47] LABS: HEMATOCRIT 29.6 % (37.0-47.0); HEMOGLOBIN 9.7 g/dl (12.0-16.0)
[2022-08-21 05:57] LABS: ALKALINE PHOSPHATASE 57 u/l (38-126); BUN 15 mg/dL (8-23); BUN/CREATININE RATIO 20 (12-20 (CALC)); CARBON DIOXIDE 22 mmol/l (22-30); CHLORIDE 105 mmol/l (95-108); CREATININE 0.8 mg/dL (0.5-1.0); GFR FOR AFR.AMER. > 60 ML/MIN (>=60 (CALC)); GFR OTHER RACES > 60 ML/MIN (>=60 (CALC)); SGOT/AST 22 u/l (9-36); SODIUM 134 mmol/l (137-146)
[2022-08-21 05:58] LABS: ALBUMIN 3.6 g/dL (3.2-5.0); ANION GAP 11 (6-22 (CALC)); BILIRUBIN, TOTAL 0.1 mg/dL (0.02-1.3)
--- NOTE | 2022-08-21 07:28 | NUR ---
PT RESTING IN BED. ALL SAFETY MEASURES IN PLACE. VSS. NO NEEDS AT THIS TIME.
--- NOTE | 2022-08-21 12:00 | NUR ---
PT RESTING COMFORTABLY. VSS. NO NEEDS AT THIS TIME. FAMILY AT BEDSIDE.
--- NOTE | 2022-08-21 17:00 | NUR ---
PT RESTING COMFORTABLY. VSS. NO NEEDS AT THIS TIME. FAMILY AT BEDSIDE.
--- NOTE | 2022-08-21 20:50 | NUR ---
PT IN BED AWAKE. DENIES PAIN OR DISCOMFORT. ASSESMENT COMPLETED. BREATING EVEN AND UNLABORED. NO S/S OF DISTRESS NOTED. PT REQUEST A SLEEPING PILL, DR FOREMAN NOTIFIED AND ORDER RESTORIL MAR UPDATED AND MEDICATED ASS ORDER. CALL LIGHT IN REACH AND BED IN LOWEST POSITION.
--- NOTE | 2022-08-22 00:50 | NUR ---
PT IN BED RESTING WITH EYES CLOSED. BREATHING IS EVEN UNLABORED. NO S/S OF DISTRESS NOTED. CALL LIGHT IN REACH AND BED IN LOWEST POSITION.
[2022-08-22 04:20] VITALS: BP 109/55
[2022-08-22 04:25] VITALS: BP 118/41
--- NOTE | 2022-08-22 04:55 | NUR ---
PT IN BED RESTING WITH EYES CLOSED, BREATHING IS EVEN AND UNLABORED. NO S/S OF DISTRESS NOTED CALL LIGHT IN REACH AND BED IN LOWEST POSITION.
[2022-08-22 05:11] VITALS: BP 118/41
[2022-08-22 07:28] VITALS: BP 126/74
--- NOTE | 2022-08-22 07:33 | NUR ---
PT RESTING IN BED. ALL SAFETY MEASURES IN PLACE. NO NEEDS AT THIS TIME. VSS
[2022-08-22 09:36] LABS: BASO% 0.2 % (0-3); EOS% 1.6 % (0-8); HEMATOCRIT 33.8 % (37.0-47.0); IMMATURE GRANULOCYTES 0.2 % (0.0-5.0); LYMPH% 33.4 % (15-41); MEAN CELL VOLUME 94.7 fL CALC (80.0-100.0); MEAN CORPUSCULAR HGB 30.8 pG CALC (26.0-32.0); MEAN CORPUSCULAR HGB CONC 32.5 g/dL CAL (32.0-36.0); MONO% 7.3 % (2-13); NEUT# 2.57 thou/uL (2.00-7.15); NEUT% 57.3 % (42-76); RED BLOOD COUNT 3.57 mill/uL (4.20-5.60); RED CELL DISTRI WIDTH 12.9 % (11.5-15.5)
[2022-08-22 15:32] VITALS: BP 108/61
[2022-08-22 19:28] VITALS: BP 101/62
--- NOTE | 2022-08-22 20:30 | NUR ---
PT IN BED WATCHING TV. SHIFT ASSESSMENT COMPLETED. NO S/S OF DISTRESS NOTED. BREATHING EVEN UNLABORED. PT STATES THAT SHE PULL HER IV THIS AM IN HER SLEEP. IV CATH NOTED ON THE IV TUBING, CATH IS INTACT. NO OTHER NEEDS OR CONCERNS VOICED. CALL LIGHT IN REACH AND BED IN LOWEST POSITION.
--- NOTE | 2022-08-22 23:39 | NUR ---
PT IN BED WATCHING TV. SHIFT ASSESMENT COMPLETED. NO S/S OF DISTRESS NOTED. BREATHING IS EVEN AND UNLABORED. PT STATES THAT SHE PULL HER IF THIS AM WHEN SHE HALF SLEEP. IV CATH NOTED AT THE END OF IV TUBING, CATH IS INTACT. NO OTHER NEEDS OR CONCERNS VOICED AT THIS TIME. CALL LIGHT IN REACH AND BED IN LOWEST POSITION.
--- NOTE | 2022-08-23 00:31 | NUR ---
PT IN BED PLAYING ON HER PHONE. DENIES PAIN OR DISCOMFORT. NO S/S OF DISTRESS NOTED. CALL LIGHT IN REACH AND BED IN LOWESST POSITIN.
[2022-08-23 03:53] VITALS: BP 112/69
--- NOTE | 2022-08-23 04:20 | NUR ---
PT IN BED RESTING WITH EYES CLOSED BREATHING EVEN AND UNLABORED. NO S/S OF DISTRESSNOTED. CALL LIGHT IN REACH AND BED IN LOWEST POSITION.
[2022-08-23 05:50] LABS: BASO% 0.5 % (0-3); EOS% 2.3 % (0-8); HEMATOCRIT 29.7 % (37.0-47.0); HEMOGLOBIN 9.6 g/dl (12.0-16.0); IMMATURE GRANULOCYTES 0.5 % (0.0-5.0); LYMPH% 40.5 % (15-41); MEAN CELL VOLUME 95.5 fL CALC (80.0-100.0); MEAN CORPUSCULAR HGB 30.9 pG CALC (26.0-32.0); MEAN CORPUSCULAR HGB CONC 32.3 g/dL CAL (32.0-36.0); MONO% 7.4 % (2-13); NEUT# 2.1 thou/uL (2.00-7.15); NEUT% 48.8 % (42-76); RED BLOOD COUNT 3.11 mill/uL (4.20-5.60); RED CELL DISTRI WIDTH 12.9 % (11.5-15.5)
[2022-08-23 06:09] LABS: ALBUMIN 3.6 g/dL (3.2-5.0); ALKALINE PHOSPHATASE 48 u/l (38-126); ANION GAP 11 (6-22 (CALC)); BUN 15 mg/dL (8-23); BUN/CREATININE RATIO 22 (12-20 (CALC)); CARBON DIOXIDE 24 mmol/l (22-30); CHLORIDE 104 mmol/l (95-108); CREATININE 0.7 mg/dL (0.5-1.0); GFR FOR AFR.AMER. > 60 ML/MIN (>=60 (CALC)); GFR OTHER RACES > 60 ML/MIN (>=60 (CALC)); POTASSIUM 3.6 mmol/l (3.5-5.1); SGOT/AST 20 u/l (9-36); SODIUM 135 mmol/l (137-146); TOTAL PROTEIN 6.2 g/dL (6.3-8.2)
[2022-08-23 07:23] VITALS: BP 114/62
--- NOTE | 2022-08-23 08:00 | NUR ---
PT IN BED RESTING. ALERT AND ORIENTED X 3, PT HAS NO C/O PAIN AT THIS TIME. PT AMBULATING WELL TO BATHROOM FOR TOILETING NEEDS. PT HAS NO IV SITE AT THIS TIME, PROVIDER AWARE. PT HAS CALL LIGHT WTIHIN REACH AND SAFETY MEASURES IN PLACE AT THIS ITME.
[2022-08-23 10:05] VITALS: BP 129/73
[2022-08-23] MEDS ORDERED: LOSARTAN POTASS50 MG PO (10:38)
--- NOTE | 2022-08-23 12:07 | NUR ---
Discharge instructions given. Patient verbalizes understanding of same. Discharged in stable condition via Wheelchair to Home with staff. All belongings sent with pt.
== END 2022-08-23 12:20 | disposition home or self-care (01) ==
LOC: ED 12:55 → ED-I 14:25 → ED 18:02 → MS2 18:03
PROVIDERS: Family Medicine; ADMIT Internal Medicine; ATTEND Internal Medicine
DX: N17.9 Acute kidney failure, unspecified (principal); E86.0 Dehydration; E87.1 Hypo-osmolality and hyponatremia; E87.6 Hypokalemia; R91.8 Other nonspecific abnormal finding of lung field; I10 Essential (primary) hypertension; J44.9 Chronic obstructive pulmonary disease, unspecified; K58.2 Mixed irritable bowel syndrome; D64.9 Anemia, unspecified; F41.9 Anxiety disorder, unspecified; Z87.440 Personal history of urinary (tract) infections; Z73.3 Stress, not elsewhere classified; Z63.8 Other specified problems related to primary support group; Z87.891 Personal history of nicotine dependence; Z20.822 Contact with and (suspected) exposure to COVID-19
CPT/HCPCS: Q9967

== ENCOUNTER 2022-10-17 11:59 | Observation (INO) | payer MEDICARE, OTHER ==
[~2022-10-17] VITALS: Ht 162.6 cm; Wt 52.8 kg
[2022-10-17] VITALS (15 sets, daily range): BP systolic 88–182; BP diastolic 54–105
[~2022-10-17 11:59] MED LIST changes: +GABAPENTIN100 MG PO; +MECLIZINE 2525 MG PO; +NORVASC PO; +OMEPRAZOLE20 MG PO; +SYMBICORT 80-4.5MCG; +VENLAFAXINE HCL75 M1 PO
[2022-10-17] MEDS ORDERED: AMLODIPINE BESYL5 MG PO (12:14)
[2022-10-17] MEDS ORDERED: HYDROCHLOROT25 MG PO (12:16)
[2022-10-17 13:14] LABS: BASO% 0.3 % (0-3); HEMATOCRIT 35.8 % (37.0-47.0); HEMOGLOBIN 11.7 g/dl (12.0-16.0); IMMATURE GRANULOCYTES 0.2 % (0.0-5.0); LYMPH% 30.9 % (15-41); MEAN CELL VOLUME 91.1 fL CALC (80.0-100.0); MEAN CORPUSCULAR HGB 29.8 pG CALC (26.0-32.0); MEAN CORPUSCULAR HGB CONC 32.7 g/dL CAL (32.0-36.0); MONO% 7.3 % (2-13); NEUT# 3.3 thou/uL (2.00-7.15); NEUT% 50.3 % (42-76); RED BLOOD COUNT 3.93 mill/uL (4.20-5.60); RED CELL DISTRI WIDTH 12.7 % (11.5-15.5)
[2022-10-17 13:23] LABS: ALBUMIN 4.7 g/dL (3.2-5.0); ALKALINE PHOSPHATASE 90 u/l (38-126); BUN 10 mg/dL (8-23); BUN/CREATININE RATIO 13 (12-20 (CALC)); CARBON DIOXIDE 25 mmol/l (22-30); CHLORIDE 97 mmol/l (95-108); CREATININE 0.7 mg/dL (0.5-1.0); GFR FOR AFR.AMER. > 60 ML/MIN (>=60 (CALC)); GFR OTHER RACES > 60 ML/MIN (>=60 (CALC)); SGOT/AST 28 u/l (9-36); SODIUM 135 mmol/l (137-146); TOTAL PROTEIN 7.7 g/dL (6.3-8.2)
[2022-10-17 13:24] LABS: ANION GAP 16 (6-22 (CALC)); BILIRUBIN, TOTAL 0.6 mg/dL (0.02-1.3); POTASSIUM 3.1 mmol/l (3.5-5.1)
[2022-10-18 01:54] VITALS: BP 113/58
[2022-10-18 04:00] VITALS: BP 101/54
[2022-10-18 04:49] LABS: EOS% 0.2 % (0-8); HEMATOCRIT 33.9 % (37.0-47.0); IMMATURE GRANULOCYTES 0.2 % (0.0-5.0); MEAN CELL VOLUME 91.1 fL CALC (80.0-100.0); MEAN CORPUSCULAR HGB 29.6 pG CALC (26.0-32.0); MEAN CORPUSCULAR HGB CONC 32.4 g/dL CAL (32.0-36.0); MONO% 0.8 % (2-13); NEUT# 4.56 thou/uL (2.00-7.15); NEUT% 86.8 % (42-76); RED BLOOD COUNT 3.72 mill/uL (4.20-5.60); RED CELL DISTRI WIDTH 12.6 % (11.5-15.5)
[2022-10-18 05:02] LABS: ALBUMIN 4.3 g/dL (3.2-5.0); ALKALINE PHOSPHATASE 85 u/l (38-126); ANION GAP 14 (6-22 (CALC)); BILIRUBIN, TOTAL 0.4 mg/dL (0.02-1.3); BUN 13 mg/dL (8-23); BUN/CREATININE RATIO 18 (12-20 (CALC)); CARBON DIOXIDE 23 mmol/l (22-30); CHLORIDE 99 mmol/l (95-108); CREATININE 0.7 mg/dL (0.5-1.0); GFR FOR AFR.AMER. > 60 ML/MIN (>=60 (CALC)); GFR OTHER RACES > 60 ML/MIN (>=60 (CALC)); MAGNESIUM 1.5 mg/dL (1.6-2.3); POTASSIUM 3.2 mmol/l (3.5-5.1); SGOT/AST 29 u/l (9-36); SODIUM 133 mmol/l (137-146); TOTAL PROTEIN 7.2 g/dL (6.3-8.2)
[2022-10-18 09:56] VITALS: BP 137/71
[2022-10-18 09:57] VITALS: BP 131/71
[2022-10-18] MEDS ORDERED: MEDDOSEPAK PO (10:39)
[2022-10-18] MEDS ORDERED: BIOTUSSIN PO (10:40)
[2022-10-18] MEDS ORDERED: ZITHROMAX250 MG PO (10:40)
== END 2022-10-18 12:30 | disposition home or self-care (01) ==
LOC: ED 11:59 → ICU 19:16 → MS2 19:16 → ICU 21:20
PROVIDERS: Family Medicine; ADMIT Internal Medicine; ATTEND Internal Medicine
DX: J44.1 Chronic obstructive pulmonary disease with (acute) exacerbation (principal); E87.6 Hypokalemia; C34.2 Malignant neoplasm of middle lobe, bronchus or lung; I10 Essential (primary) hypertension; K58.2 Mixed irritable bowel syndrome; F41.9 Anxiety disorder, unspecified; F32.A Depression, unspecified; Z87.891 Personal history of nicotine dependence
CPT/HCPCS: J1650; J3475; Q9967

== ENCOUNTER 2023-03-30 10:06 | Inpatient (IN) | payer MEDICARE, OTHER ==
[~2023-03-30] VITALS: Ht 162.6 cm; Wt 51.2 kg
[2023-03-30] VITALS (11 sets, daily range): BP systolic 123–146; BP diastolic 66–83
[~2023-03-30 10:06] MED LIST changes: +AMLODIPINE BESYL5 MG PO; +HYDROCHLOROT25 MG PO
[2023-03-30] MEDS ORDERED: OMEPRAZOLE DR40 MG PO (10:19)
[2023-03-30] MEDS ORDERED: FLUTICASONE PR50 MC1 (10:19)
[2023-03-30] MEDS ORDERED: HYDROCHLOROT25 MG PO (10:20)
[2023-03-30] MEDS ORDERED: AMLODIPINE BESY10 MG PO (10:20)
--- NOTE | 2023-03-30 10:22 | NUR ---
TO ROOM 14 VIA EMS STRETCHER IN STABLE CONDITION.
--- NOTE | 2023-03-30 11:31 | NUR ---
PROVIDER AT BEDSIDE. PROVIDER ADVISED PT OF PLAN OF CARE. PT VERBALIZED UNDERSTANDING.
[2023-03-30 12:14] LABS: BASO% 0.1 % (0-3); EOS% 0.2 % (0-8); HEMATOCRIT 28.9 % (37.0-47.0); HEMOGLOBIN 9.9 g/dl (12.0-16.0); IMMATURE GRANULOCYTES 0.8 % (0.0-5.0); LYMPH% 3.5 % (15-41); MEAN CORPUSCULAR HGB 33.9 pG CALC (26.0-32.0); MEAN CORPUSCULAR HGB CONC 34.3 g/dL CAL (32.0-36.0); MONO% 5.7 % (2-13); NEUT# 7.74 thou/uL (2.00-7.15); NEUT% 89.7 % (42-76); RED BLOOD COUNT 2.92 mill/uL (4.20-5.60); RED CELL DISTRI WIDTH 11.8 % (11.5-15.5)
[2023-03-30 12:29] LABS: ALBUMIN 3.5 g/dL (3.2-5.0); ALKALINE PHOSPHATASE 99 u/l (38-126); ANION GAP 16 (6-22 (CALC)); BILIRUBIN, TOTAL 0.4 mg/dL (0.02-1.3); BUN 21 mg/dL (8-23); BUN/CREATININE RATIO 40 (12-20 (CALC)); CARBON DIOXIDE 24 mmol/l (22-30); CHLORIDE 91 mmol/l (95-108); CREATININE 0.5 mg/dL (0.5-1.0); GFR FOR AFR.AMER. > 60 ML/MIN (>=60 (CALC)); GFR OTHER RACES > 60 ML/MIN (>=60 (CALC)); POTASSIUM 3.2 mmol/l (3.5-5.1); SGOT/AST 31 u/l (9-36); SODIUM 127 mmol/l (137-146); TOTAL PROTEIN 6.4 g/dL (6.3-8.2)
--- NOTE | 2023-03-30 12:47 | NUR ---
PT VSS. PT VERBALIZED CONCERNS OF CONTINUED WAIT TIMES. PT ADVISED OF CONTINUED WAIT TIMES. SON IS AT THE BEDSIDE.
--- NOTE | 2023-03-30 13:30 | NUR ---
PT IS ALERT. SON AT BEDSIDE. PT VERBALZIED NO NEEDS AT THIS TIME.
--- NOTE | 2023-03-30 15:48 | NUR ---
REPORTS PROVIDED TO [facility] NURSE. PT BELOINGS GATHERED PRIOR TO TRANSPORT.
--- NOTE | 2023-03-30 15:55 | NUR ---
RT AT BEDSIDE ADMINISTERING BREATHING TX.
--- NOTE | 2023-03-30 16:00 | NUR ---
PT ARRIVED TO UNIT FROM ER AT 1525, AOX3 BUT PLESENTLY FORGETFUL. PT CHEIF COMPLAINT IS CONSTIPATION. LAST BM 03/25/23, BP 142/73, HR 86, 02 AT 93% ON 2L. PT EDUCATED TO CALL FOR ASSISTANCE NEEDED. HOURLY ROUNDING IN PLACE.
--- NOTE | 2023-03-30 17:30 | NUR ---
PT STATES SHE HAD A LARGE BM BUT FLUSHED BEFORE I COULD SEE IT.
--- NOTE | 2023-03-30 20:10 | NUR ---
PT INQUIRING ABOUT HAVING SOMETHING TO HELP SLEEP. DR PONCE INFORMED AND ORDERED MEDICATIONS . PT VERBALIZEED UNDERSTANDING.
--- NOTE | 2023-03-30 20:15 | NUR ---
ASSESSMENT IS COMPLETED: IV SITE IS FREE FROM REDNESS OR EDEMA. HR IS REG,PULSES ARE STRONG X4,ABD IS SOFT WITH ACTIVE BS, BREATH SOUNDS ARE CLEAR AND DIMINISHED. CONTINUE TO OBSERVE AND MONITOR. PT IS ON O2 @ 2LITERS.
--- NOTE | 2023-03-30 21:39 | NUR ---
PT GOT UP TO USE THE BATHROOM WITH STAFF HELP, BECAME SHORT OF BREATH . CALLED RT AND INQUIRED ABOUT GIVING A BREATHING TREATMENT
--- NOTE | 2023-03-30 21:49 | NUR ---
RESPIRATORY IN GIVING A BREATHING TREATMENT. PT O2 WAS UP TO 3 LITERS THEN SAT UP TO 93%
[2023-03-30 22:03] LABS: URINE BILIRUBIN - DIPSTICK Negative (NEGATIVE); URINE BLOOD DIPSTICK Trace-intact (NEGATIVE); URINE GLUCOSE - DIPSTICK Negative (NEGATIVE); URINE KETONE Negative (NEGATIVE); URINE LEUK ESTERASE Trace (NEGATIVE); URINE NITRITE - DIPSTICK Negative (Negative); URINE PROTEIN - DIPSTICK 100 mg/dL (NEG-TRACE); URINE UROBILINOGEN - DIPSTICK 0.2 E.U./dL (0.2)
[2023-03-30 22:04] LABS: URINE COLOR Yellow; URINE RBC 0-2 RBC/hpf (0-5); URINE SQUAMOUS EPITHELIAL CELL RARE EPI/hpf (0-FEW); URINE WBC 0-2 WBC/hpf (0-5)
--- NOTE | 2023-03-31 00:12 | NUR ---
PT IS UP TO [facility] WITH ASSIST. TOLERATED WELL. IV SITE IS FREE FROM REDNESS OR EDEMA. HAS BEEN RESTING WITHOUT DIFFICULTY,
--- NOTE | 2023-03-31 01:00 | NUR ---
PT UP TO THE [facility] WITH 1 ASSIST AND REDIRECTED ABOUT BEING IN THE HOSPITAL. VERBALIZED UNDERSTANDING.
[2023-03-31 04:20] VITALS: BP 137/73
--- NOTE | 2023-03-31 04:38 | NUR ---
PT HAS BEEN RESTING OFF AND ON. GETS PERIODS OF CONFUSION BUT IS EASILY REDIRECTABLE. IV SITE REMAINS FREE FROM REDNESS OR EDEMA. PT HAS HAD AMOTHER LOOSE STOOL FROM MEDICATION GIVEN PRIOR TO SHIFT CHANGE.
[2023-03-31 05:50] LABS: EOS% 0.8 % (0-8); HEMATOCRIT 28.1 % (37.0-47.0); HEMOGLOBIN 9.5 g/dl (12.0-16.0); IMMATURE GRANULOCYTES 0.3 % (0.0-5.0); LYMPH% 5.4 % (15-41); MEAN CELL VOLUME 99.6 fL CALC (80.0-100.0); MEAN CORPUSCULAR HGB 33.7 pG CALC (26.0-32.0); MEAN CORPUSCULAR HGB CONC 33.8 g/dL CAL (32.0-36.0); MONO% 7.4 % (2-13); NEUT# 5.47 thou/uL (2.00-7.15); NEUT% 86.1 % (42-76); RED BLOOD COUNT 2.82 mill/uL (4.20-5.60); RED CELL DISTRI WIDTH 11.9 % (11.5-15.5)
[2023-03-31 06:13] LABS: ALBUMIN 2.9 g/dL (3.2-5.0); ALKALINE PHOSPHATASE 84 u/l (38-126); ANION GAP 14 (6-22 (CALC)); BILIRUBIN, TOTAL 0.4 mg/dL (0.02-1.3); BUN 9 mg/dL (8-23); BUN/CREATININE RATIO 20 (12-20 (CALC)); CALCULATED LDLCHOLESTEROL 62 mg/dL (62-129 (CALC)); CARBON DIOXIDE 20 mmol/l (22-30); CHLORIDE 100 mmol/l (95-108); CHOLESTEROL HDL RATIO 2.5 (<4.4 (CALC)); CREATININE 0.5 mg/dL (0.5-1.0); GFR FOR AFR.AMER. > 60 ML/MIN (>=60 (CALC)); GFR OTHER RACES > 60 ML/MIN (>=60 (CALC)); HDL CHOLESTEROL 49 mg/dL (39.0-59.0); MAGNESIUM 1.3 mg/dL (1.6-2.3); POTASSIUM 3.6 mmol/l (3.5-5.1); SGOT/AST 27 u/l (9-36); SODIUM 130 mmol/l (137-146); TOTAL PROTEIN 5.6 g/dL (6.3-8.2); TOTAL TRIGLYCERIDES 63 mg/dl (0-149); VLDL CHOLESTROL 13 mg/dl (0-48 (CALC))
[2023-03-31 06:14] LABS: TOTAL CHOLESTEROL 124 mg/dl (0-199)
[2023-03-31 07:13] VITALS: BP 134/69
--- NOTE | 2023-03-31 08:05 | NUR ---
PT ALERT, ABLE TO ANSWERS QUESTIONS CORRECTLY BUT STATES SHE FORGOT SHE WAS IN THE HOSPITAL TILL HER SON WHO VISITED THIS MORNING TOLD HER. SHE DID REMEMBER WE SENT HER PAIN PILLS TO THE PHARMACY AT ADMISSION. BED ALARM IN USE. BP 134/69 HR 103 O2 95% ON 2L, TEMP 98.4. LUNGS DIM AT THE BASES, DENIES PAIN AT THIS TIME.
--- NOTE | 2023-03-31 09:20 | NUR ---
DR PONCE AT BEDSIDE DISCUSSING PLAN OF CARE WITH PT AND .
--- NOTE | 2023-03-31 10:15 | NUR ---
RT AT BEDSIDE PERFORMING WALK TEST WITH PT.
--- NOTE | 2023-03-31 11:45 | NUR ---
PT IN BED SLEEPING AT THIS TIME.
--- NOTE | 2023-03-31 15:36 | NUR ---
PT ORIENTED TO SELF ONLY AT THIS TIME. STATES SHE WANTS TO "GO HOME" IS HOLDING HER BLONIGINGS IN HER ARMS TO LEAVE. REORIENTED PT TO PLACE/TIME. PT AGREES TO WAIT FOR TO VISIT.
[2023-03-31 15:38] VITALS: BP 160/76
[2023-03-31 19:17] VITALS: BP 148/78
--- NOTE | 2023-03-31 19:31 | NUR ---
PT O2 SAT DROPPED TO 79%, CHANGED THE PULSE OX TO FOREHEAD WENT UP TO 96% VENTOLIN INHALER GIVEN
--- NOTE | 2023-03-31 20:00 | NUR ---
ASSESSMENT IS COMPLETED: PT IS HAVING PERIODS OF CONFUSION, TELLING SPOUSE THAT STAFF IS IN THE FRONT YARD, SPOUSE REASSURED HER THAT SHE WAS IN THE HOSPITAL. IV SITE IS FREE FROM REDNESS OR EDEMA. HR IS REG,PULSES ARE STRONG, ABD IS SOFT WITH ACTIVE BS, BREATH SOUNDS ARECLEAR, CRACKLES AND DIMINSHED WITH O2 @ 2LITERD NC.
--- NOTE | 2023-03-31 23:28 | NUR ---
PT TOOK IV OUT AND TOLD STAFF"I DON'T KNOW WHAT GIVES YOU THE RIGHT TO RESTART ANIV" EXPLAINED ABOUT THE IV FLUIDS AND ABT. PT IS VERY SASSY TONIGHT TELLING STAFF SHE IS GOING HOME.
--- NOTE | 2023-03-31 23:29 | NUR ---
ATTEMPTED X2 TO RESTART THE IV NO SUCCESS WILL HAVE ANOTHER STAFF MEMBER TRY.
--- NOTE | 2023-04-01 | NUR ---
NEW IV SITE STARTED BY CHAD LUEVANO, #22 IN LFA, COVERED WITH COBAN.
--- NOTE | 2023-04-01 00:14 | NUR ---
STAFF SITTING OUTSIDE OF HER ROOM. PT SON CAME TO SEE PT STATING" I WOKE UP AND COULDN'T SLEEP SO I CAME TO BE WITH HER". INFORMED DOT NET ARCHITECT. CONTINUE TO OSBERVE AND MONITOR.
--- NOTE | 2023-04-01 02:00 | NUR ---
PT'S SON IN THE ROOM. CAME OUT AND STATED" MY MOM IS SHORT OF BREATH" WHILE IN THE ROOM,. THE SON INQUIRED " WHY WASN'T ANYONE COMING IN AND CHECKING ON PT" EXPLAINED THAT THE STAFF HAVE BEEN WALKING PAST AND CHECKING ON THE PT. ALSO WANTING TO KNOW WHY THE DR ISN'T HERE TO SEE THE PT. EXPLAINED THEY WILL BE HERE IN THE AM. VERBALIZED UNDERSTANDING,.
--- NOTE | 2023-04-01 03:30 | NUR ---
PT'S FAMILY LEFT AND WANTED US TO CALL IF MOTHER WOKE UP AND ASKED ABOUT HIM. PT THEN MOVED ON THE SIDE OF THE BED AND GAVE HER MEDICATION . ENCOURAGED TO KEEP THE O2 NC ON PT CONTINOUSLY TAKES IT OFF.
--- NOTE | 2023-04-01 04:18 | NUR ---
PT IS LAYING ON HER SIDE. REDIRECTABLE AT THIS TIME.
[2023-04-01 04:36] VITALS: BP 143/89
--- NOTE | 2023-04-01 07:41 | NUR ---
PT SLEEPING AT THIS TIME WITH SITTER AT BEDSIDE FOR SAFETY.
[2023-04-01 07:50] VITALS: BP 140/63
[2023-04-01 07:54] LABS: ALBUMIN 3.2 g/dL (3.2-5.0); ALKALINE PHOSPHATASE 99 u/l (38-126); ANION GAP 16 (6-22 (CALC)); BILIRUBIN, TOTAL 0.5 mg/dL (0.02-1.3); BUN 6 mg/dL (8-23); BUN/CREATININE RATIO 13 (12-20 (CALC)); CARBON DIOXIDE 15 mmol/l (22-30); CHLORIDE 101 mmol/l (95-108); CREATININE 0.5 mg/dL (0.5-1.0); GFR FOR AFR.AMER. > 60 ML/MIN (>=60 (CALC)); GFR OTHER RACES > 60 ML/MIN (>=60 (CALC)); POTASSIUM 3.3 mmol/l (3.5-5.1); SGOT/AST 36 u/l (9-36); SODIUM 129 mmol/l (137-146); TOTAL PROTEIN 6.7 g/dL (6.3-8.2)
[2023-04-01 08:00] LABS: BASO% 0.5 % (0-3); EOS% 0.3 % (0-8); HEMATOCRIT 31.6 % (37.0-47.0); HEMOGLOBIN 10.5 g/dl (12.0-16.0); IMMATURE GRANULOCYTES 0.4 % (0.0-5.0); LYMPH% 2.8 % (15-41); MEAN CELL VOLUME 101.9 fL CALC (80.0-100.0); MEAN CORPUSCULAR HGB 33.9 pG CALC (26.0-32.0); MEAN CORPUSCULAR HGB CONC 33.2 g/dL CAL (32.0-36.0); MONO% 4.5 % (2-13); NEUT# 8.78 thou/uL (2.00-7.15); NEUT% 91.5 % (42-76); RED BLOOD COUNT 3.1 mill/uL (4.20-5.60); RED CELL DISTRI WIDTH 12.2 % (11.5-15.5)
--- NOTE | 2023-04-01 09:00 | NUR ---
ANASTACIO,ANRP AT BEDSIDE DISCUSSING POC WITH PT.
--- NOTE | 2023-04-01 09:49 | NUR ---
RT AT ADMINISTERING BREATHING TX.
--- NOTE | 2023-04-01 11:02 | NUR ---
AT BEDSIDE DISCUSSING POC WITH PT.
--- NOTE | 2023-04-01 11:44 | NUR ---
LAB AT BEDSIDE
--- NOTE | 2023-04-01 12:35 | NUR ---
RT AT BEDSIDE OBTAINING ABG.
--- NOTE | 2023-04-01 13:25 | NUR ---
pt off the floor via wheelchair staff transport with oxygen for ct scan.
--- NOTE | 2023-04-01 13:47 | NUR ---
PT RETURNED TO MED/SURG ROOM 261 IN STABLE CONDITION VIA WC.
--- NOTE | 2023-04-01 13:51 | NUR ---
pt returned to room.
--- NOTE | 2023-04-01 15:15 | NUR ---
CRACKING UNIT OPERATOR WITNESSED FAMILY MEMBERS BRINGINGS A DOG TO BEDSIDE.THE DOG IS NOT A SERICE DOG. EDUCATED FAMILY ON [facility] PET POLICY AND FAMILY VERBALIZES UNDERSTANDING. PET ESCORTED OFF OF THE FLOOR WITH FAMILY.
[2023-04-01 15:16] VITALS: BP 156/87
--- NOTE | 2023-04-01 15:56 | NUR ---
RECIEVED CALLED FROM RN. STATING PATIENT SATTING IN THE 70'S. BROUGHT A VENTIMASK NOTICING PT. WAS MOUTH BREATHING EALIER. PLACED PT.ON 50% V/M AND SAT'S SLOWLY CAME TO 90%. INFORMED BRIANNE.
--- NOTE | 2023-04-01 15:59 | NUR ---
PT ALERT, ORIENTED TO SELF BUT NOT PLACE OR TIME. RT WORKING WITH PT, REPLACING NC WITH MASK, PT IS A MOUTH BREATHER. SITTER AT BEDSIDE FOR PT SAFETY.
--- NOTE | 2023-04-01 16:00 | NUR ---
PT O2 SATS NOTED TO BE LOW, RESULTING LOW 78%.ENCOURAGED PURSED LIP BREATHING BUT UNSUCCESSFUL. RT NOTIFIED AND PT SWITCHED TO A V/M AT 50% AND OXYGEN LEVELS STEFFANIE TO LOW 90'S.SITER AT BEDSIDE.FREQUENT ROUNDS MADE.
[2023-04-01 19:12] VITALS: BP 151/72
--- NOTE | 2023-04-01 20:20 | NUR ---
ASSESSMENT IS COMPLETED: PT IS LAYING IN BED CONTINUING TO TAKE OFF HER NON REBREATHER, ENCOURAGED TO KEEP ON, SITTER AT BEDSIDE. IV SITE IS FREE FROM REDNESS OR EDEMA. HR IS REG,PULSES ARE STRONG X4,ABD IS SOFT WITH ACTIVE BS. BREATH SOUNDS ARE CLEAR,CRACKLES AND DIMINSHED.
--- NOTE | 2023-04-01 22:39 | NUR ---
pt continues to fight with staff, pulling her mask off, encouraged to keep on and relaxing. pt is seeing things that are not there.
--- NOTE | 2023-04-02 | NUR ---
encouraged pt to sit in the reclyner to get comfortable. verbalized understanding.
--- NOTE | 2023-04-02 01:12 | NUR ---
PT HAS BEEN TAKING SMALL INTERVALS OF SLEEP, THEN GETS RESTLESS, EASILY REDIRECTABLE ON KEEPING NON REBREATHER IN PLACE. O2 GOES FROM 89-94%
[2023-04-02 03:52] VITALS: BP 156/93
--- NOTE | 2023-04-02 04:11 | NUR ---
pt has been resting with sitter at bedside., more comfortable in the reclyner, now back into bed, o2 is 97-99
--- NOTE | 2023-04-02 05:09 | NUR ---
pt is back in bed and resting encouraging to keep mask on, demonstrating , and then puts her hands back down.
[2023-04-02 05:18] LABS: BASO% 0.1 % (0-3); EOS% 0.1 % (0-8); HEMATOCRIT 28.9 % (37.0-47.0); HEMOGLOBIN 9.5 g/dl (12.0-16.0); IMMATURE GRANULOCYTES 0.2 % (0.0-5.0); LYMPH% 3.7 % (15-41); MEAN CELL VOLUME 103.6 fL CALC (80.0-100.0); MEAN CORPUSCULAR HGB 34.1 pG CALC (26.0-32.0); MEAN CORPUSCULAR HGB CONC 32.9 g/dL CAL (32.0-36.0); MONO% 6.7 % (2-13); NEUT# 9.5 thou/uL (2.00-7.15); NEUT% 89.2 % (42-76); RED BLOOD COUNT 2.79 mill/uL (4.20-5.60); RED CELL DISTRI WIDTH 12.4 % (11.5-15.5)
--- NOTE | 2023-04-02 07:00 | NUR ---
REPORT RECEIVED FROM SUSAN HOANG.
[2023-04-02 07:23] VITALS: BP 183/93
--- NOTE | 2023-04-02 07:25 | NUR ---
patients blood pressure is 180/83 heart rate is 99. will notify nurse.
[2023-04-02 07:43] VITALS: BP 141/53
--- NOTE | 2023-04-02 07:44 | NUR ---
retook patient vitals and it was 141/53 heart rate 96
[2023-04-02 07:45] VITALS: BP 141/53
[2023-04-02 08:07] LABS: ALBUMIN 2.8 g/dL (3.2-5.0); ALKALINE PHOSPHATASE 102 u/l (38-126); ANION GAP 14 (6-22 (CALC)); BILIRUBIN, TOTAL 0.4 mg/dL (0.02-1.3); BUN 11 mg/dL (8-23); BUN/CREATININE RATIO 22 (12-20 (CALC)); CARBON DIOXIDE 14 mmol/l (22-30); CHLORIDE 105 mmol/l (95-108); CREATININE 0.5 mg/dL (0.5-1.0); GFR FOR AFR.AMER. > 60 ML/MIN (>=60 (CALC)); GFR OTHER RACES > 60 ML/MIN (>=60 (CALC)); MAGNESIUM 1.7 mg/dL (1.6-2.3); POTASSIUM 3.6 mmol/l (3.5-5.1); SGOT/AST 31 u/l (9-36); SODIUM 129 mmol/l (137-146); TOTAL PROTEIN 5.6 g/dL (6.3-8.2)
--- NOTE | 2023-04-02 08:10 | NUR ---
PT RESTING IN SEMI FOWLERS POSITION,A&O X2 THIS MORNING;RESPIRATIONS SHALLOW ON NON-REBREATHER @ 12L, WITHOUT OXYGEN PT DE-SATS TO 70'S;FREQUENT RE-ASSURANCE NEEDED TO KEEP MASK ON;DIMINISHED LUNG SOUNDS NOTED; NOTIFIED;ABDOMEN SOFT ON PALPATION AND ACTIVE IN ALL 4 QUADRANTS;WEAK PEDAL PULSES;SKIN INTACT;#22G TO RFA INFUSING NS @ 10ML/HR,SITE APPEARS HEALTHY;PT PROVIDED SODA PER REQUEST, ENCOURAGED ORAL INTAKE;PT DENIES ANY ADDITIONAL NEEDS AND IS ENCOURAGED TO CALL FOR ASSISTANCE IF NEEDED;FALL PRECAUTIONS IN PLACE WITH BED IN THE LOWEST POSITION AND SITER AT BEDSIDE;CALL LIGHT IN REACH;FREQUENT ROUNDS MADE.
--- NOTE | 2023-04-02 08:32 | NUR ---
AT BEDSIDE DISCUSSING POC WITH PT, SPOUSE AND SON.
--- NOTE | 2023-04-02 08:50 | NUR ---
PT TRANSPORTED TO [facility] IN STABLE CONDITION VIA ACCOMPANIED BY KENZIE GEE.
--- NOTE | 2023-04-02 09:18 | NUR ---
UNABLE TO OBTAIN A #20G IN A AC FOR CTA. ORDER OBTAINED BY TO ACCESS CHEST PORT. CHEST PORT TO BE ACCESSED BY CHLOÉ METZGER.
--- NOTE | 2023-04-02 09:50 | NUR ---
PT BROUGHT BACK TO THE FLOOR.ATTEMPTING TO ACCESS PORT AT BEDSIDE.
[2023-04-02 10:02] VITALS: BP 162/84
--- NOTE | 2023-04-02 10:07 | NUR ---
UNABLE TO OBTAIN PULMONARY CONSULT THERE IS NO [employer]AIL [employer] PROFESSIONAL LAUNDRY SUPERVISOR. NOTIFIED.
--- NOTE | 2023-04-02 10:20 | NUR ---
#20G STARTED TO [facility] BY . NOTIFIED CT THAT HE APPROVES USE OF SITE FOR CTA.
--- NOTE | 2023-04-02 10:30 | NUR ---
PT TRANSPORTED TO [facility] IN STABLE CONDITION VIA ACCOMPANIED BY KENZIE GEE.
--- NOTE | 2023-04-02 10:59 | NUR ---
PT ARRIVED BACK TO MED/SURG VIA WC ACCOMPANIED BY KENZIE GEE. PT RE-POSITIONED FOR COMFORT. FAMILY AT BEDSIDE. SITTER TO REMAIN AT BEDSIDE.FREQUENT ROUNDS MADE.
--- NOTE | 2023-04-02 11:29 | NUR ---
patient family talking about putting on the nasal cannula and talking about me not doing anything about her mask, I alerted the nurse and she went in there to fix her mask. family still complaining about things
--- NOTE | 2023-04-02 11:30 | NUR ---
PT RESTING IN SEMI FOWLERS POSITION WITH MULTIPLE FAMILY MEMBERS AT BEDSIDE;RESPIRATIONS REMAIN SHALLOW AND LABORED ON NON-REBREATHER;FREQUENT ENCOURAGEMENT TO LEAVE MASK ON;PT DENIES ANY CURRENT PAIN;IV SITE X2 PATENT AND LEFT CHEST PORT;PT AND FAMILY DENY ANY ADDIITONAL NEEDS;SITTER REMAINS AT BEDSIDE;BED IN THE LOWEST POSITION WITH CALL LIGHT IN REACH;FREQUENT ROUNDS MADE.
--- NOTE | 2023-04-02 11:56 | NUR ---
put patient on bedide comode. and put her back in bed. patient family complaing in my face that i'm not feeding their mom. but when i do her saturations drop.
--- NOTE | 2023-04-02 12:03 | NUR ---
PT RE-POSITIONED INTO HIGH FOWLERS POSITION;ASSISTED WITH EATING LUNCH, VERY MINIMAL ORAL INTAKE.PT DECLINES TO EAT REPORTING SHE JUST "WANTS TO REST AWHILE";RESPIRATIONS REMAINS SHALLOW ON NON-REBREATHER WITH SATS IN LOW 90'S;SITTER AT BEDSIDE;CALL LIGHT IN REACH;FREQUENT ROUNDS MADE.
--- NOTE | 2023-04-02 12:27 | NUR ---
PT MEDICATED WITH PRN ZOFRAN 4MG IVP FOR NAUSEA.
--- NOTE | 2023-04-02 13:01 | NUR ---
patient states she is going to , but i am sittig by bed side reassuring her she is ok
--- NOTE | 2023-04-02 13:04 | NUR ---
PT MEDICATED WITH PRN XANAX 0.25MG PO FOR ANXIETY.SITTER REMAINS AT BEDSIDE.FREQUENT ROUNDS MADE.
--- NOTE | 2023-04-02 13:12 | NUR ---
PT RE-POSITIONED INTO RECLINER.SON AT BEDSIDE;RESPIRATIONS SHALLOW AND LABORED ON NON-REBREATHER;SITTER REMAINS AT BEDSIDE;CALL LIGHT IN REACH;FREQUENT ROUNDS MADE.
--- NOTE | 2023-04-02 13:28 | NUR ---
patient up in chair. she states she feels so much better. will continue monitoring
--- NOTE | 2023-04-02 13:58 | NUR ---
patient back in bed laying down with eyes closed.
--- NOTE | 2023-04-02 14:18 | NUR ---
RT AT BEDSIDE
--- NOTE | 2023-04-02 15:00 | NUR ---
DR. PONCE AGREED TO TRANSFER PATIENT TO [facility]. WEED COOKING OPERATOR INITIATED TRANSFER TO [facility]. WEED COOKING OPERATOR CALLED AT [phone] SPOKE TO ALYSON. GAVE DIAGNOSIS FOR TRANSFER HYPOXIC RESPIRATORY FAILURE AND NO PULMONOLOGY CONSULT WAS GIVEN DUE TO NOT BEING IN HOUSE. GAVE OTHER INFORMATION REGARDING PATIENT FOR TRANSFER. ALYSON STATED HE WOULD CALL ME BACK WHEN HE TALKS TO HIS HOSPITALIST AND PULMONOLOGY. WHILE AWAITING THE CALL FROM HIM, ALYSON ASKED TO RETEST PATIENT FOR COVID AND TO SEND FACESHEET TO [phone].
--- NOTE | 2023-04-02 15:03 | NUR ---
AT BEDSIDE DISCUSSING POC WITH PT AND FAMILY INCLUDING PLANS TO TRANSFER TO A HIGHER LEVEL OF CARE.
--- NOTE | 2023-04-02 15:16 | NUR ---
ALYSON CALLED BACK FROM [facility] AND ASKED IF IT WOULD BE POSSIBLE FOR PATIENT TO BE TRANSFERRED TOMORROW DUE TO PULMONOLOGY STATING THAT SHE NOT BE SEEN BY THERE DEPARTMENT UNTIL TUESDAY TO MAKE A DECISION. PLACED ALYSON ON HOLD AND SPOKE TO DR. PONCE. DR PONCE STATED HE WOULD LIKE HER TO GO TODAY DUE TO HER DECLINE IN FUNCTION FROM YESTERDAY SHE WAS ON NASAL CANULA AND NOW ON A NON RE-BREATHER AT 12 LITERS. GOT BACK ON THE PHONE WITH ALYSON AND STATED DR REGAN'S CONCERN. ALYSON STATED OK I WILL CALL MY [employer] SCOUT BACK AND LET THEM KNOW WHAT WAS SAID.
--- NOTE | 2023-04-02 15:20 | NUR ---
PT RESTING IN SEMI FOWLERS POSITION WITH MULTIPLE FAMILY MEMBERS AT BEDSIDE;RESPIRATIONS REMAIN SHALLOW AND LABORED ON NON-REBREATHER 12L;PT DENIES ANY CURRENT PAIN;IV SITES X2 INTACT;PT AND FAMILY EDUCATED ON PLANS TO TRANSFER TO A HIGHER LEVEL OF CARE AND VERBALIZES UNDERSTANDING;ALL QUESTIONS ANSWERED AT THIS TIME;COVID SWAB OBTAINED; ALL SAFETY PRECAUTIONS REMAIN IN PLACE WITH SITTER AT BEDSIDE;CALL LIGHT IN REACH;FREQUENT ROUNDS MADE.
--- NOTE | 2023-04-02 15:32 | NUR ---
ALYSON CALLED FROM [facility] AND STATED WE GOT AN ACCEPTED DOCTOR. HIS NAME IS DR. NAPOLEON KINGSLEY.
[2023-04-02 15:51] VITALS: BP 158/90
--- NOTE | 2023-04-02 16:32 | NUR ---
patient is getting aggitated and confused. taking off mask and saying she is going home to see her dogs.
--- NOTE | 2023-04-02 17:40 | NUR ---
ALYSON CALLED FROM [facility] TO TELL YOUTH MANAGER WE RECEIVED A ROOM NUMBER. PT IS TO GO TO ROOM 10 [place] [address]. REPORT GIVEN TO NUMBER [phone].
--- NOTE | 2023-04-02 17:43 | NUR ---
CALLED POSITIVE TRANSPORT AT SPOKE TO ADELE GAVE INFORMATION ON PT AND WHERE SHE IS HERE AND WHERE SHE IS GOING TO [facility]. STATED THEY WILL ARRIVE AT [phone].
--- NOTE | 2023-04-02 18:04 | NUR ---
PT TO BE TRANSFERRED TO [facility]. ESTIMATED DRAPERY HANGER TIME OF [phone]. PT AND SPOUSE NOTIFIED.
--- NOTE | 2023-04-02 18:12 | NUR ---
REPORT CALLED TO CHLOÉ OVIEDO AT [facility]. PT TO BE TRANSPORTED TO E TOWER BED 1080. APPROX TRANSPORT TIME [phone].
--- NOTE | 2023-04-02 18:30 | NUR ---
PT HAS HOME MEDICATIONS IN PHARMACY. SPOKE WITH PT SON AND INSTRUCTED HIM TO STOP AT [facility] TOMORROW MORNING TO [facility] HOME MEDICATIONS SINCE PT WILL BE TRANSFERRED TO [facility].
--- NOTE | 2023-04-02 18:33 | NUR ---
DISPATCH CALLED [facility] [facility] SUPERVISOR TO INFORM THAT WE WERE BUMPED BY ER AND THERE APPROXIMATELY TIME IS 2215 TONIGHT.
--- NOTE | 2023-04-02 18:45 | NUR ---
PT AIRPORT RAMP SUPERVISOR TIME CHANGED 10:00PM.FAMILY NOTIFIED.
--- NOTE | 2023-04-02 18:53 | NUR ---
CALLED ALYSON TO TELL HIM ETA FOR HER NUT SHELLER AT [phone].
--- NOTE | 2023-04-02 18:57 | NUR ---
CALLED [facility] BACK SPOKE TO ALYSON AND STATED WE WERE BUMPED FROM ER AND ESTIMATED TIME IS 2214.
--- NOTE | 2023-04-02 20:01 | NUR ---
received shift report. pt is lying supine in bed with HOB elevated. has non rebreather mask on. awake answers questions appropriately. Breathing is labored. 02 sat decreases when pt takes her mask off. pt vomitted zofran given as ordered. received breathing tx at this time. awaiting lemon picker for transfer to a higher level of care.
--- NOTE | 2023-04-02 23:52 | NUR ---
PT TRANSFERRED TO HIGHER LEVEL OF CARE FACILITY AT 2300. TRANSFERRED VIA STRETCHER AND EMS . WITH PATIENT. PT ON NON REBREATHER. AWAKE. ABLE TO ANSWER QUESTIONS.
== END 2023-04-02 23:00 | disposition short-term general hospital (02) | DRG 193 ==
LOC: ED 10:06 → ED-I 13:40 → ED 13:57 → MS2 13:58
PROVIDERS: Emergency Medicine; Nurse Practitioner Family; ADMIT Student in an Organized Health Care Education/Training Program; ATTEND Student in an Organized Health Care Education/Training Program
DX: J18.9 Pneumonia, unspecified organism (principal); J96.01 Acute respiratory failure with hypoxia; C34.2 Malignant neoplasm of middle lobe, bronchus or lung; J44.0 Chronic obstructive pulmonary disease with (acute) lower respiratory infection; E87.3 Alkalosis; E87.1 Hypo-osmolality and hyponatremia; Z68.1 Body mass index [BMI] 19.9 or less, adult; R64 Cachexia; E83.42 Hypomagnesemia; E87.6 Hypokalemia; I10 Essential (primary) hypertension; D50.9 Iron deficiency anemia, unspecified; F41.9 Anxiety disorder, unspecified; K58.2 Mixed irritable bowel syndrome; Z87.891 Personal history of nicotine dependence; Z87.440 Personal history of urinary (tract) infections; Z95.828 Presence of other vascular implants and grafts; Z20.822 Contact with and (suspected) exposure to COVID-19; Z79.60 Long term (current) use of unspecified immunomodulators and immunosuppressants
CPT/HCPCS: J1650; J3475; Q9967